=== PATIENT | female | born 1955 | race Caucasian/White ===

== ENCOUNTER 2018-03-08 16:36 | Inpatient (IN) ==
[2018-03-08] MEDS ORDERED: HEPARIN - PHARMACY CONSULT MC ONE (17:45)
[2018-03-08] MEDS ORDERED: HEPARIN 1,000unit/ml INJECTION 10ml IVP ONE (18:44)
[2018-03-08] MEDS: HEPARIN DRIP 20,000 UNIT/500 ML BAG IV SCH (19:22)
[2018-03-08] MEDS ORDERED: ACETAMINOPHEN 325 MG TABLET PO PRN (19:41)
[2018-03-08] MEDS: ALBUTEROL/IPRATROPIUM 2.5mg-0.5mg/3ml NEB AEROSOL PRN (20:36)
[2018-03-08] MEDS: FUROSEMIDE 40 MG/4 ML INJECTION IVP SCH (21:45)
[2018-03-08] MEDS: SALINE FLUSH 10ml SYRINGE IV PRN (21:48)
[2018-03-09] MEDS: FUROSEMIDE 40 MG/4 ML INJECTION IVP SCH ×4 (03:06→20:06)
[2018-03-09] MEDS ORDERED: HEPARIN 1,000unit/ml INJECTION 10ml IVP ONE ×3 (05:06→23:15)
--- NOTE | 2018-03-09 08:39 | Cardiology History & Physical ---
History of Present Illness Chief complaint: dyspnea HPI: Terrie is a 63 year old female who is known to Dr. Ochoa with a history of CO, CAD with PTCA of 1st diagonal and RCA, HTN, HLD and nicotine dependence who presented to the [facility] ED due to severe dyspnea yesterday. She reports her breathing has been labored with NGO since she had pneumonia at the beginning of January but became markedly worse yesterday. She reports increased abdominal girth and firmness, as well as LE edema over the past week. She was seen in the ED here at [facility] on 01/29/18 and prescribed Levaquin and Duoneb treatments for pneumonia, she finished the course and continues Duoneb treatments. She did follow up with Dr. Edwards 3 weeks after her diagnosis and he started her on Zantac for her stomach which she was unable to tolerate. She reports that she has not felt well since that illness but was unable to lay flat in her bed for a couple of months prior. She is examined in CCU. She is sitting up in bed in no distress on 3L/NC. She has a frequent moist cough and chest heaviness but denies dyspnea, fever, chills , sore throat, chest pain, palpitations, N/V/D, dysuria. Review of Systems - Constitutional Constitutional: Present: as per HPI. Absent: chills, fever(s) - EENMT Eyes: Absent: change in vision Balance: Absent: vertigo Mouth/Throat: Present: as per HPI - Cardiovascular Cardiovascular: Present: dyspnea on exertion, orthopnea, edema. Absent: chest pain, palpitations, syncope Rhythm: Present: regular rhythm Vascular: Present: pedal edema - Respiratory Respiratory: Present: cough, dyspnea, chest congestion - Gastrointestinal Gastrointestinal: Present: as per HPI. Absent: abdominal pain, constipation, diarrhea, nausea, vomiting - Genitourinary Genitourinary: Present: as per HPI - Integumentary/Breasts Integumentary: Absent: rash - Neurological Neurological: Absent: dizziness - Endocrine Endocrine: Absent: palpitations PFSH Patient Stated Medical History Other HEENT Yes: Reading GLASSES Hypertension Yes Myocardial Infarction Yes Bronchitis Yes Pneumonia Yes Surgical History: Family History: Father - CO in 40s, of CO at age 59 Grandfather - CO, at 63 Brother - DM HTN, HLD Daughter - HTN, HLD - Social History Smoking status: Current every day smoker Substance use type: does not use Alcohol intake: current Alcohol intake frequency: 0-2 drinks per day Last drink: unknown Housing: apartment Household members: none Current residence: Apartment/Private Home Medications Home Medications Medication Instructions Recorded Confirmed Type Nitroglycerin 0.4 mg SL PRN #0 07/01/12 03/08/18 History Acetaminophen [Acetaminophen Extra 500 mg PO BID 03/08/18 03/08/18 History Strength] Albuterol/Ipratropium [Duoneb] 1 unit AEROSOL Q4H PRN 03/08/18 03/08/18 History # Warfarin Protocol # [Coumadin 2 mg MC DAILY #30 misc 03/14/18 Rx Protocol] Aspirin *EC* [Ecotrin] 81 mg PO DAILY #30 tab 03/14/18 Rx Atorvastatin [Lipitor] 40 mg PO HS #30 tab 03/14/18 Rx Carvedilol [Coreg] 3.125 mg PO BIDWM #60 tab 03/14/18 Rx Clopidogrel [Plavix] 75 mg PO DAILY #30 tab 03/14/18 Rx Furosemide [Lasix 40 mg Tab] 40 mg PO 0900,1700 #60 tab 03/14/18 Rx Lisinopril [Prinivil] 2.5 mg PO DAILY #30 tab 03/14/18 Rx Nitroglycerin [Nitrostat] 0.4 mg SL Q5MIN3 PRN #25 tab 03/14/18 Rx Potassium Chloride [K-DUR 20 mEq 20 meq PO DAILY #30 tab 03/14/18 Rx Tablet] Allergies Allergy/AdvReac Type Severity Reaction Status Date / Time No Known Allergies Allergy Unverified 01/29/18 01:03 Exam Vital signs: Temperature 97.7 F 03/08/18 20:28 Pulse Rate 101 H 03/09/18 06:00 Respiratory Rate 29 H 03/09/18 06:00 Blood Pressure 110/82 03/09/18 06:00 Pulse Oximetry 97 03/09/18 06:00 - Constitutional no acute distress, cooperative - Routine HEENT Exam Head: Present: normocephalic ENT: Present: mucous membranes moist - Routine Neck Exam Absent: JVD, carotid bruit - Routine Chest/Breast/Axilla Exam Chest wall: Absent: tenderness - Routine Respiratory Exam Present: rales (LLL), diminished air movement (RLL). Absent: accessory muscle use, dyspnea, CTA bilaterally - Routine Cardiovascular Exam Present: RRR, no murmur, tachycardia - Routine Abdominal Exam Present: non distended, non tender, firm. Absent: soft - Routine Extremities Exam Present: edema - Routine Skin Exam Present: intact, dry, warm - Routine Neurological Exam Present: alert, oriented X3 - Routine Psychiatric Exam Present: normal affect, normal thought process Results 03/14/18 06:31 03/14/18 06:31 Cardiac Enzymes 03/08/18 03/09/18 03/09/18 Range/Units 18:29 00:02 05:39 Troponin I 0.204 H 0.199 H 0.212 H (0-0.12) ng/ml Coagulation 03/08/18 03/09/18 Range/Units 18:29 03:14 APTT 53.1 H 27.8 (24-36) SEC CBC 03/08/18 03/09/18 Range/Units 18:29 05:39 WBC 9.2 (4.5-11.0) T/MM3 RBC 4.19 (4.00-5.20) M/MM3 Hgb 12.4 (12-16) GM/DL Hct 39.9 (36-46) % Plt Count 273 244 (130-400) T/MM3 Comprehensive Metabolic Panel 03/09/18 Range/Units 05:39 Sodium 141 (134-144) MEQ/L Potassium 3.5 L (3.6-5) MEQ/L Chloride 98 (98-107) MEQ/L Carbon Dioxide 31 H (22-30) MEQ/L BUN 16.0 (7-17) MG/DL Creatinine 1.0 (0.7-1.2) mg/dL Glucose 103 (65-110) MG/DL Calcium 9.0 (8.4-10.2) MG/DL Intake and Output 03/08/18 03/09/18 03/09/18 22:59 06:59 14:59 Intake Total 236.308 / 236.308 113.48 / 113.48 Output Total 950 / 950 2375 / 2375 Balance -713.692 / -713.692 -2261.52 / -2261.52 Intake: IV 36.308 / 36.308 113.48 / 113.48 Heparin Drip 20,000 unit In 500 36.308 / 36.308 113.48 / 113.48 ml @ 550 UNIT/HR 13.75 mls/hr IV .Q24H COUNT INCLUDES THE [facility] Rx#:[id number] Oral 200 / 200 Output: Urine 400 / 400 Urine Amount (Catheter) 550 / 550 2375 / 2375 Other: Urine Appearance Clear Clear Urine Color Pale Pale Yellow Yellow # Voids 1 Weight 121 lb 7.595 oz - Imaging and Cardiology Imaging & Cardiology Narrative: Date of Exam: 03/09/18 Ordering Provider: Sindhu Black APRN Type of Exam(s): XR chest 1V Reason for Exam(s): dyspnea EXAM: XR chest 1V HISTORY: dyspnea COMPARISON: Prior examination dated 01/29/2018 FINDINGS: The heart is enlarged. The trachea is midline is no evidence mediastinal widening. There is mild pulmonary vascular congestion and hazy opacities at the lung bases right greater than left. There is blunting of the right costophrenic angle. The left costophrenic angle is clear. The bony thorax appears stable. There is artifact from cardiac monitoring lead wires over the chest. IMPRESSION: 1. Cardiomegaly with early congestive changes. 2. Hazy opacities at the lung bases, right greater than left that may represent superimposed atelectasis or early infiltrate. 3. Small right pleural effusion. 03/09/18 09:58 03/10/18 10:37 Date of Exam: 03/08/18 Type of Exam(s): US echo doppler complete DATE OF PROCEDURE March 08, 2018 This is a two-dimensional echo with spectral Doppler, color-flow and M-mode. It was obtained in a patient with congestive heart failure and chest pain. Left atrium is dilated. Left ventricle end-diastolic dimension is normal. Left ventricle wall thickness is normal. Severe global hypokinesia is present with ejection fraction no more than 20%. Right atrium is dilated. Right ventricle is normal. Aortic root dimension is normal. Mitral valve is morphologically normal with moderate mitral regurgitation. Aortic valve is a trileaflet structure with no stenosis. Mild aortic insufficiency is present. Tricuspid valve shows moderate tricuspid regurgitation with severe pulmonary hypertension with estimated pulmonary artery systolic pressure of 75. Pulmonary valve shows moderate pulmonary insufficiency. There is no pericardial effusion. Left ventricular cavity shows apical thrombus. IMPRESSION 1. Severe global hypokinesia with ejection fraction no more than 20%. 2. Left ventricular apical thrombus. 3. Biatrial dilation. 4. Moderate mitral regurgitation. 5. Mild aortic insufficiency. 6. Moderate tricuspid regurgitation with severe pulmonary hypertension with estimated pulmonary artery systolic pressure of 75. 7. Moderate pulmonary insufficiency. 03/10/18 10:39 Date of Exam: 03/09/18 Ordering Provider: Sindhu Black APRN Type of Exam(s): US venous doppler LE BI Reason for Exam(s): cardiac thrombus EXAM: US venous doppler LE BI HISTORY: cardiac thrombus COMPARISON: No prior studies available for comparison. Using duplex and color flow technology the deep venous system of the legs were evaluated throughout their length. No abnormal findings were demonstrated, specifically no intraluminal thrombus is seen. The deep venous system appears completely compressible throughout its length bilaterally. At the same time it shows the normal properties of spontaneous flow as well as augmentation. IMPRESSION: Negative venous ultrasound of both lower extremities. EKG interpretations - EKG EKG results cardiology: sinus rhythm - Dysrhythmias Sinus rhythms and dysrhythmias: sinus tachycardia Ventricular dysrhythmias: supraventricular captures during ventricular rhythm or tachycardia Hospital Course This is a general summary of the patient's hospital course. For more details refer to the complete medical record. Time spent with patient: 25 - 35 minutes Resuscitation Status: Full Code Assessment and Plan - Attestation Attestation Narrative: 03/15/18 07:53 Recommendation After examining the patient I agree with the above assessment. I am involved in the formulation of the patient's plan of care. - Assessment and Plan (1) Acute systolic heart failure Status: Acute Has JVD, Dyspnea, hypoxia, ascites, pedal edema - 2D echo: EF 20-25% - BNP 24202 - Diuresis with Lasix 40mg IV Q6H - Replace potassium - Check Mag - CXR this am (2) NSTEMI (non-ST elevated myocardial infarction) Status: Acute Trend serial troponins. 1) 0.204, 2) 0.199, 3) 0.212 - EKG ST, NSSTT changes - Heparin drip - 2D echo pending - Will need LHC when able to tolerate laying flat (3) Cardiomyopathy Status: Acute EF 20-25% - Coreg 3.125mg BID, Lisinopril 5mg daily - Life Vest - LHC to determine if ischemic or nonischemic (4) Left ventricular thrombus Status: Acute Heparin drip per pharmacy consult - LE venous doppler for DVT (5) Hypokalemia Status: Resolved Give additional 40meq KCl no - Continue KCl 20meq TID (6) Pulmonary hypertension Status: Chronic - Assessment and Plan Acute systolic HF: Has JVD, Dyspnea, hypoxia, ascites, pedal edema - 2D echo: EF 20-25% - BNP 74009 - Diuresis with Lasix 40mg IV Q6H - Replace potassium - Check Mag - CXR this am NSTEMI: Trend serial troponins. 1) 0.204, 2) 0.199, 3) 0.212 - EKG ST, NSSTT changes - Heparin drip per pharmacy consult - 2D echo pending - Will need LHC when able to tolerate laying flat CM: EF 20-25% - Coreg 3.125mg BID, Lisinopril 5mg daily - Life Vest - LHC to determine if ischemic or nonischemic LV thrombus: Heparin drip per pharmacy consult - LE venous doppler for DVT Hypokalemia:Give additional 40meq KCl no - Continue KCl 20meq TID
--- NOTE | 2018-03-09 08:45 | XRay Report ---
EXAM: XR chest 1V HISTORY: dyspnea COMPARISON: Prior examination dated 01/29/2018 FINDINGS: The heart is enlarged. The trachea is midline is no evidence mediastinal widening. There is mild pulmonary vascular congestion and hazy opacities at the lung bases right greater than left. There is blunting of the right costophrenic angle. The left costophrenic angle is clear. The bony thorax appears stable. There is artifact from cardiac monitoring lead wires over the chest. IMPRESSION: 1. Cardiomegaly with early congestive changes. 2. Hazy opacities at the lung bases, right greater than left that may represent superimposed atelectasis or early infiltrate. 3. Small right pleural effusion. .
--- NOTE | 2018-03-09 10:04 | Ultrasound Report ---
EXAM: US venous doppler LE BI HISTORY: cardiac thrombus COMPARISON: No prior studies available for comparison. Using duplex and color flow technology the deep venous system of the legs were evaluated throughout their length. No abnormal findings were demonstrated, specifically no intraluminal thrombus is seen. The deep venous system appears completely compressible throughout its length bilaterally. At the same time it shows the normal properties of spontaneous flow as well as augmentation. IMPRESSION: Negative venous ultrasound of both lower extremities. .
[2018-03-09] MEDS ORDERED: ALBUTEROL/IPRATROPIUM 2.5mg-0.5mg/3ml NEB AEROSOL PRN (13:49)
[2018-03-09] MEDS: CARVEDILOL 3.125 MG TABLET PO SCH ×2 (14:18→20:06)
[2018-03-09] MEDS: LISINOPRIL 2.5 MG TABLET PO SCH (14:18)
--- NOTE | 2018-03-09 14:25 | Echocardiogram ---
DATE OF PROCEDURE March 08, 2018 This is a two-dimensional echo with spectral Doppler, color-flow and M-mode. It was obtained in a patient with congestive heart failure and chest pain. Left atrium is dilated. Left ventricle end-diastolic dimension is normal. Left ventricle wall thickness is normal. Severe global hypokinesia is present with ejection fraction no more than 20%. Right atrium is dilated. Right ventricle is normal. Aortic root dimension is normal. Mitral valve is morphologically normal with moderate mitral regurgitation. Aortic valve is a trileaflet structure with no stenosis. Mild aortic insufficiency is present. Tricuspid valve shows moderate tricuspid regurgitation with severe pulmonary hypertension with estimated pulmonary artery systolic pressure of 75. Pulmonary valve shows moderate pulmonary insufficiency. There is no pericardial effusion. Left ventricular cavity shows apical thrombus. IMPRESSION 1. Severe global hypokinesia with ejection fraction no more than 20%. 2. Left ventricular apical thrombus. 3. Biatrial dilation. 4. Moderate mitral regurgitation. 5. Mild aortic insufficiency. 6. Moderate tricuspid regurgitation with severe pulmonary hypertension with estimated pulmonary artery systolic pressure of 75. 7. Moderate pulmonary insufficiency. MTDD
--- NOTE | 2018-03-09 14:28 | Pharmacy Consult ---
Pharmacy Consult-Heparin - Laboratory Information Heparin Plt Count 244 T/MM3 (130-400) 03/09/18 05:39 APTT 36.1 SEC (24-36) H 03/09/18 12:42 - Consult Information HEPARIN CONSULT: Day 2 of Heparin Therapy Dx: Left ventricular thrombus KARLA is a 63 yo female who is known to Dr. Ochoa with a history of NC, CAD with PTCA. She reported on admission her breathing has been labored with NGO since she had pneumonia at the beginning of January but became markedly worse yesterday. She reported increased abdominal girth and firmness, as well as LE edema over the past week. A Heparin Dosing Protocol was ordered. Baseline PTT = 53 Sec. *Have questioned this aPTT since. Baseline platelet count = 273 T/mm3. PTT Target Range (Cardiac Patient) = 50-75 Seconds Today's aPTT @ 1330 = 36.1 seconds Current PLT count = 244 T/mm3 I will give Heparin Bolus of 3,000 units, and increase the Heparin Drip at 20 units/hr (23 ml/hr). I also ordered an aPTT fir 2330 this evening. and the pharmacy will continue to monitor and make adjustments accordingly. Thank you for the Heparin dosing Protocol, Tyron Lion [facility].
[2018-03-09] MEDS: ALBUTEROL/IPRATROPIUM 2.5mg-0.5mg/3ml NEB AEROSOL PRN (16:04)
[2018-03-09] MEDS: BUDESONIDE INH.SOLN 0.5mg/2ml NEB AEROSOL SCH (19:15)
[2018-03-09] MEDS: ALBUTEROL/IPRATROPIUM 2.5mg-0.5mg/3ml NEB AEROSOL SCH (19:15)
[2018-03-09] MEDS: HEPARIN DRIP 20,000 UNIT/500 ML BAG IV SCH ×3 (20:07→23:23)
[2018-03-09] MEDS ORDERED: HEPARIN 5,000unit/ml 1ml INJECTION IV ONE (23:10)
[2018-03-10] MEDS: NITROGLYCERIN 2% OINTMENT 1gm PACKET TP SCH ×4 (02:56→21:44)
[2018-03-10] MEDS: FUROSEMIDE 40 MG/4 ML INJECTION IVP SCH ×4 (02:56→21:44)
[2018-03-10] MEDS: ALBUTEROL/IPRATROPIUM 2.5mg-0.5mg/3ml NEB AEROSOL SCH ×2 (06:36→19:57)
[2018-03-10] MEDS: BUDESONIDE INH.SOLN 0.5mg/2ml NEB AEROSOL SCH ×2 (06:36→19:58)
--- NOTE | 2018-03-10 07:47 | Pharmacy Consult ---
Pharmacy Consult-Heparin - Laboratory Information Heparin - Consult Information HEPARIN CONSULT: Day 2 of Heparin Therapy @2230 Dx: Left ventricular thrombus KARLA is a 63 yo female who is known to Dr. Ochoa with a history of OR, CAD with PTCA. She reported on admission her breathing has been labored with NGO since she had pneumonia at the beginning of January but became markedly worse yesterday. She reported increased abdominal girth and firmness, as well as LE edema over the past week. A Heparin Dosing Protocol was ordered. Baseline PTT = 53 Sec. *Have questioned this aPTT since. Baseline platelet count = 273 T/mm3. PTT Target Range (Cardiac Patient) = 50-75 Seconds Today's aPTT @ 2219 = 40.2 seconds Current PLT count = 244 T/mm3 I will give Heparin Bolus of 3,000 units, and increase the Heparin Drip at 1040 units/hr (26 ml/hr). I also ordered an aPTT fir 0630 tomorrow morning and the pharmacy will continue to monitor and make adjustments accordingly. Thank you for the Heparin dosing Protocol, Tyron Lion RPh.
--- NOTE | 2018-03-10 07:59 | Pharmacy Consult ---
Pharmacy Consult-Heparin - Laboratory Information Heparin Plt Count 249 T/MM3 (130-400) 03/10/18 06:34 APTT 64.9 SEC (24-36) H 03/10/18 06:34 - Consult Information HEPARIN CONSULT: Day 3 of Heparin Therapy @ 0800 Dx: Left ventricular thrombus KARLA is a 63 yo female who is known to Dr. Ochoa with a history of [place], CAD with PTCA. She reported on admission her breathing has been labored with NGO since she had pneumonia at the beginning of January but became markedly worse yesterday. She reported increased abdominal girth and firmness, as well as LE edema over the past week. A Heparin Dosing Protocol was ordered. Baseline PTT = 53 Sec. *Have questioned this aPTT since. Baseline platelet count = 273 T/mm3. PTT Target Range (Cardiac Patient) = 50-75 Seconds Today's aPTT @ 0624 = 64 seconds Current PLT count = 249 T/mm3 I will continue the Heparin Drip at 1040 units/hr (26 ml/hr). [place] [address] tomorrow morning and the pharmacy will continue to monitor and make adjustments accordingly. Thank you for the Heparin dosing Protocol, Tyron Lion [facility].
[2018-03-10] MEDS: LISINOPRIL 2.5 MG TABLET PO SCH (08:22)
[2018-03-10] MEDS: CARVEDILOL 3.125 MG TABLET PO SCH (08:22)
[2018-03-10] MEDS ORDERED: NS 1,000 ML IV SCH (10:00)
[2018-03-10] MEDS ORDERED: NITROGLYCERIN 50MG INJECTION IV ONE (13:22)
[2018-03-10] MEDS ORDERED: MIDAZOLAM 2mg/2ml INJECTION ONE (13:22)
[2018-03-10] MEDS ORDERED: Verapamil 5 MG/2 ML VIAL ONE (13:22)
[2018-03-10] MEDS ORDERED: HEPARIN 1,000 UNITS/500 ML PREMIX (*CVL ONLY*) IV ONE (13:23)
[2018-03-10] MEDS ORDERED: HEPARIN 1,000unit/ml INJECTION 10ml ONE (13:23)
[2018-03-10] MEDS ORDERED: FentaNYL 250 MCG/5 ML INJECTION ONE (13:23)
[2018-03-10] MEDS ORDERED: IOHEXOL 350mg/ml 200ml BOTTLE ONE (13:24)
[2018-03-10] MEDS ORDERED: LIDOCAINE 1% (10mg/ml) 30ml SDV INJ ONE (13:24)
[2018-03-10] MEDS ORDERED: ASPIRIN 325 MG TABLET ONE (14:13)
[2018-03-10] MEDS ORDERED: CLOPIDOGREL 75 MG TABLET ONE (14:14)
[2018-03-10] MEDS ORDERED: PROMETHAZINE 25 MG INJECTION IVP PRN (14:31)
[2018-03-10] MEDS ORDERED: ONDANSETRON 4 MG/2 ML INJECTION IVP PRN (14:31)
[2018-03-10] MEDS ORDERED: ATROPINE 1 MG/ML INJECTION IVP PRN (14:31)
[2018-03-10] MEDS ORDERED: METOCLOPRAMIDE 10mg/2ml INJECTION IVP PRN (14:31)
[2018-03-10] MEDS ORDERED: MORPHINE SULFATE 4mg INJECTION IVP PRN ×2 (14:31)
[2018-03-10] MEDS ORDERED: NITROGLYCERIN 0.4 MG SUBLINGUAL TABLET SL PRN (14:31)
[2018-03-10] MEDS ORDERED: BISACODYL 10 MG SUPPOSITORY RECTALLY PRN (14:31)
[2018-03-10] MEDS ORDERED: Bisacodyl EC TAB 5 MG TABLET PO PRN (14:31)
[2018-03-10] MEDS ORDERED: HYDROCODONE/APAP 7.5 MG/325 MG TABLET PO PRN (14:31)
[2018-03-10] MEDS ORDERED: LORazepam 0.5 MG TABLET PO PRN (14:31)
[2018-03-10] MEDS ORDERED: MAG-AL + SIM ORAL LIQUID 30ml PO PRN (14:31)
[2018-03-10] MEDS: HEPARIN DRIP 20,000 UNIT/500 ML BAG IV SCH (17:18)
--- NOTE | 2018-03-10 21:05 | Cardiac Catheterization Report ---
DATE OF PROCEDURE March 10, 2018 The patient is a 63-year-old lady who presented with severe congestive heart failure, LV dysfunction and elevated troponin. She was referred for further evaluation by cardiac catheterization and possible intervention. Informed consent was obtained after explaining the procedure and the potential risks to the patient who agreed to proceed with the procedure. PROCEDURE 1. Left heart catheterization. 2. Coronary angiography. 3. Primary stent of mid RCA using a 2.75 x 15 drug-eluting EluNIR drug-eluting stent. 4. Right femoral angiography to visualize the vessel for closure device. 5. Successful Mynx deployment for hemostasis. TECHNIQUE She was prepped and draped in the usual sterile techniques. Conscious sedation was performed using Versed. 1% lidocaine was used for local anesthesia. Using modified Seldinger technique, arterial access was obtained into the right femoral artery with placement of a 6-Thai arterial sheath. CORONARY ANGIOGRAPHY Left main was free of significant lesions. Left anterior descending artery was a ucfsc-qv-ofvmsx-caliber vessel with about 40% mid stenosis. Diagonals were free of significant lesions. Left circumflex artery was a iqqpi-gz-pizefa- caliber vessel and nondominant with no significant lesions. Right coronary artery was dominant with 90% eccentric mid stenosis. After reviewing the images we decided to proceed with intervention on RCA. Additional 1500 units of heparin were administered. The patient was on heparin drip. A 6-Thai JR-4 guide with side holes was advanced to the ostium of the right coronary artery. The lesion was crossed using a Runthrough wire. A 2.75 x 15 drug-eluting EluNIR stent was delivered to the lesion site where it was deployed by inflating the balloon to 18 atmospheres. The next angiogram showed excellent results with no residual stenosis. Right femoral angiography showed patent common femoral, proximal SFA and profunda and therefore Mynx was used for hemostasis. IMPRESSION 1. Coronary artery disease as described above. 2. Successful primary stent of mid RCA using a 2.75 x 15 drug-eluting EluNIR stent. 3. Successful Mynx deployment for hemostasis. PLAN Will keep her on dual antiplatelet therapy at least for year and continue risk modification. [facility]
[2018-03-10] MEDS: ACETAMINOPHEN 325 MG TABLET PO PRN (21:44)
[2018-03-10] MEDS: ATORVASTATIN 40 MG TABLET PO SCH (21:44)
[2018-03-11] MEDS: FUROSEMIDE 40 MG/4 ML INJECTION IVP SCH ×2 (03:10→08:24)
[2018-03-11] MEDS: SALINE FLUSH 10ml SYRINGE IV PRN (03:11)
[2018-03-11] MEDS: NITROGLYCERIN 2% OINTMENT 1gm PACKET TP SCH ×4 (03:11→20:36)
--- NOTE | 2018-03-11 07:40 | Pharmacy Consult ---
Pharmacy Consult-Heparin - Laboratory Information Heparin Plt Count 278 T/MM3 (130-400) 03/11/18 06:51 APTT 59.8 SEC (24-36) H 03/11/18 06:51 - Consult Information PTT is in target range. Will continue heparin drip at 26 mls/hr (1040 units/hr) . Will continue to monitor. Thank you.
[2018-03-11] MEDS: ALBUTEROL/IPRATROPIUM 2.5mg-0.5mg/3ml NEB AEROSOL SCH ×2 (08:07→19:15)
[2018-03-11] MEDS: BUDESONIDE INH.SOLN 0.5mg/2ml NEB AEROSOL SCH ×2 (08:07→19:15)
[2018-03-11] MEDS: ASPIRIN *EC* 81 MG TABLET PO SCH (08:25)
[2018-03-11] MEDS: CLOPIDOGREL 75 MG TABLET PO SCH (08:25)
[2018-03-11] MEDS: LISINOPRIL 2.5 MG TABLET PO SCH (08:25)
[2018-03-11] MEDS ORDERED: ASPIRIN *EC* 81 MG TABLET PO SCH (09:00)
[2018-03-11] MEDS ORDERED: WARFARIN 6 MG TABLET PO ONE (12:39)
[2018-03-11] MEDS: WARFARIN - PHARMACY CONSULT MC ONE ×2 (12:45→13:35)
--- NOTE | 2018-03-11 13:21 | Cardiology Progress Note ---
<Sindhu Black - Last Filed: 03/11/18 20:52> Subjective Principal diagnosis: NSTEMI, CM Interval history: Terrie is seen in follow up for NSTEMI, CM and SCHF. Explained expected plan of care for rest of hospitalization, states understanding. She denies chest pain or pressure, has dyspnea at times but is in no distress on room air. She denies palpitations, dizziness or lightheadedness. Exam Vital signs: Temperature 98.1 F 03/11/18 12:00 Pulse Rate 82 03/11/18 12:00 Respiratory Rate 18 03/11/18 12:00 Blood Pressure 124/90 H 03/11/18 12:00 Pulse Oximetry 96 03/11/18 08:45 Inpatient Medications: Generic Name Dose Route Start Last Admin Trade Name Freq PRN Reason Stop Dose Admin Acetaminophen 325 - 650 mg 03/10/18 14:31 03/10/18 21:44 Tylenol PO 650 mg Q5H PRN Administration Pain Hydrocodone Bitart/Acetaminophen 1 - 2 tab 03/10/18 14:31 03/10/18 23:12 [place] 7.5/325 PO 1 tab Q5H PRN Administration Pain Al Hydroxide/Mg Hydroxide 30 ml 03/10/18 14:31 Maalox Plus PO Q3H PRN Indigestion Albuterol/Ipratropium 3 ml 03/08/18 20:33 03/09/18 16:04 Duoneb AEROSOL 3 ml RTQID PRN Administration Albuterol/Ipratropium 3 ml 03/09/18 19:00 03/11/18 08:07 Duoneb AEROSOL 3 ml RTBID [facility] Administration Aspirin 81 mg 03/11/18 09:00 03/11/18 08:25 Ecotrin PO 81 mg DAILY [facility] Administration Atorvastatin Calcium 40 mg 03/10/18 21:00 03/10/18 21:44 Lipitor PO 40 mg HS [facility] Administration Atropine Sulfate 0.5 mg 03/10/18 14:31 Atropine IVP Q5M PRN Bradycardia Bisacodyl 5 - 10 mg 03/10/18 14:31 Dulcolax PO DAILY PRN Constipation Bisacodyl 10 mg 03/10/18 14:31 Dulcolax RECTALLY DAILY PRN Constipation Budesonide 0.5 mg 03/09/18 19:00 03/11/18 08:07 Pulmicort Inhalation AEROSOL 0.5 mg RTBID [facility] Administration Clopidogrel Bisulfate 75 mg 03/11/18 09:00 03/11/18 08:25 Plavix PO 75 mg DAILY [facility] Administration Furosemide 40 mg 03/11/18 17:00 Lasix 40 Mg Tab PO 0900,1700 [facility] Heparin Sodium (Porcine) 20,000 unit in 500 mls @ 26 mls/hr 03/09/18 23:11 10:00 Heparin Drip IV 1,040 unit/hr .[id number] [facility] 26 mls/hr Protocol Titration 1,040 UNIT/HR Lisinopril 2.5 mg 03/09/18 14:00 03/11/18 08:25 Prinivil PO 2.5 mg DAILY [facility] Administration Lorazepam 0.5 - 1 mg 03/10/18 14:31 Ativan Inj IVP Q4H PRN Anxiety Lorazepam 0.5 - 1 mg 03/10/18 14:31 Ativan PO Q4H PRN Anxiety Magnesium Hydroxide 30 ml 03/10/18 14:31 Mom PO DAILY PRN Constipation Metoclopramide HCl 5 - 10 mg 03/10/18 14:31 Reglan IVP Q6H PRN Nausea &/or vomiting Morphine Sulfate 2 - 4 mg 03/10/18 14:31 Morphine Sulfate Inj IVP Q5M PRN Angina Morphine Sulfate 2 - 4 mg 03/10/18 14:31 Morphine Sulfate Inj IVP 03/11/18 14:30 Q2H PRN Pain Nitroglycerin 0.5 inch 03/10/18 03:00 03/11/18 08:26 Nitro-Bid TP 0.5 inch Q6HR [facility] Administration Nitroglycerin 0.4 mg 03/10/18 14:31 Nitrostat SL Q5MIN3 PRN Angina Ondansetron HCl 4 mg 03/10/18 14:31 03/10/18 14:35 Zofran IVP 4 mg Q6H PRN Administration Nausea &/or vomiting Potassium Chloride 20 meq 03/09/18 08:00 03/11/18 12:07 K-Dur 20 Meq Tablet PO 20 meq TIDWM [facility] Administration Promethazine HCl 12.5 - 25 mg 03/10/18 14:31 Phenergan Inj IVP Q6H PRN Nausea &/or vomiting Sodium Chloride 10 - 80 ml 03/08/18 17:23 03/11/18 03:11 Iv Flush IV 10 ml PRN PRN Administration Flushing Warfarin Sodium 0 03/11/18 12:45 Coumadin Protocol NOTE [facility] Discontinued Medications Generic Name Dose Route Start Last Admin Trade Name Freq PRN Reason Stop Dose Admin Acetaminophen 325 - 650 mg 03/08/18 19:41 03/09/18 20:11 Tylenol PO 650 mg Q5H PRN Administration Discomfort Albuterol/Ipratropium 3 ml 03/09/18 13:49 Duoneb AEROSOL Q4H PRN diff breathing/wheezing Aspirin 81 mg 03/11/18 09:00 Ecotrin PO DAILY [facility] Carvedilol 3.125 mg 03/09/18 17:30 03/10/18 08:22 Coreg PO 3.125 mg BIDWM [facility] Administration Furosemide 40 mg 03/08/18 21:00 03/11/18 08:24 Lasix 40 Mg/4 Ml IVP 40 mg Q6HR [facility] Administration Heparin Sodium (Beef Lung) 3,000 unit 03/09/18 05:06 03/09/18 05:14 Heparin Bolus IVP 03/09/18 05:07 3,000 unit O ONE Administration Heparin Sodium (Beef Lung) 3,000 unit 03/09/18 13:54 03/09/18 14:16 Heparin Bolus IVP 03/09/18 13:55 3,000 unit O ONE Administration Heparin Sodium (Beef Lung) 3,000 unit 03/09/18 23:15 03/09/18 23:17 Heparin Bolus IVP 03/09/18 23:16 3,000 unit O ONE Administration Heparin Sodium (Porcine) 1 each 03/08/18 17:45 Pharmacy Consult - Heparin 03/08/18 17:46 ONE TIME ONE Heparin Sodium (Porcine) 20,000 unit in 500 mls @ 23 mls/hr 03/08/18 19:00 23:18 Heparin Drip IV Infused .[id number] [facility] Titration Protocol 920 UNIT/HR Sodium Chloride 1,000 mls @ 75 mls/hr 03/10/18 10:00 03/10/18 20:00 Normal Saline IV Infused .[id number] [facility] Infusion Warfarin Sodium 1 each 03/11/18 12:19 Pharmacy Consult - Warfarin 03/11/18 12:20 O ONE Warfarin Sodium 6 mg 03/11/18 12:39 03/11/18 13:00 Coumadin PO 03/11/18 12:40 6 mg O ONE Administration - Constitutional no acute distress, well nourished, cooperative - Routine HEENT Exam Head: Present: normocephalic ENT: Present: mucous membranes moist - Routine Neck Exam Present: JVD. Absent: carotid bruit - Routine Chest/Breast/Axilla Exam Chest wall: Absent: tenderness - Routine Respiratory Exam Present: rales (bibasilar). Absent: accessory muscle use, dyspnea - Routine Cardiovascular Exam Present: RRR, no murmur, JVD - Routine Abdominal Exam Present: soft, non tender - Routine Extremities Exam Present: no edema - Routine Skin Exam Present: intact, dry, warm - Routine Neurological Exam Present: alert, oriented X3 - Routine Psychiatric Exam Present: normal affect, normal thought process - Urinary Catheter Management Urethral Cath placed during this visit: yes Insertion date: 03/08/18 Insertion time: 18:45 Results 03/11/18 06:51 03/11/18 06:51 Coagulation 03/11/18 Range/Units 06:51 APTT 59.8 H (24-36) SEC Lipids 03/10/18 Range/Units 06:33 Triglycerides 59 (35-135) mg/dL Cholesterol 127 L (132-199) mg/dL HDL Cholesterol 37 L (40-60) mg/dL Cholesterol/HDL Ratio 3.4 (0-4.0) RATIO CBC 03/11/18 Range/Units 06:51 WBC 7.7 (4.5-11.0) T/MM3 RBC 4.20 (4.00-5.20) M/MM3 Hgb 12.2 (12-16) GM/DL Hct 39.8 (36-46) % Plt Count 278 (130-400) T/MM3 Neut # (Auto) 4.9 (1.8-7.7) T/MM3 Lymph # (Auto) 1.9 (1-4.8) T/MM3 [place] # (Auto) 0.7 (0-0.8) T/MM3 Eos # (Auto) 0.3 (0-0.5) T/MM3 Baso # (Auto) 0.0 (0-0.2) T/MM3 Comprehensive Metabolic Panel 03/11/18 Range/Units 06:51 Sodium 137 (134-144) MEQ/L Potassium 4.1 (3.6-5) MEQ/L Chloride 96 L (98-107) MEQ/L Carbon Dioxide 29 (22-30) MEQ/L BUN 18.0 H (7-17) MG/DL Creatinine 1.0 (0.7-1.2) mg/dL Glucose 117 H (65-110) MG/DL Calcium 8.5 (8.4-10.2) MG/DL Intake and Output 03/10/18 03/11/18 03/11/18 22:59 06:59 14:59 Intake Total 954.75 / 954.75 208 / 208 604 / 604 Output Total 518 / 518 666 / 666 1155 / 1155 Balance 436.75 / 436.75 -458 / -458 -551 / -551 Intake: IV 834.75 / 834.75 208 / 208 104 / 104 Heparin Drip 20,000 unit In 500 416.0 / 416.0 208 / 208 104 / 104 ml @ 1,040 UNIT/HR 26 mls/hr IV .[id number] [facility] Rx#:[id number] Ns 1,000 ml @ 75 mls/hr IV . 418.75 / 418.75 [id number] [facility] Rx#:[id number] Oral 120 / 120 500 / 500 Output: Urine Amount (Catheter) 518 / 518 666 / 666 1155 / 1155 Other: Urine Appearance Clear Clear Clear Urine Color Yellow Yellow Pale Yellow Urine Odor Normal Stool Characteristics Normal for Patient Stool Color Brown Brown Stool Consistency Formed Formed Size of Bowel Movement Moderate Moderate Weight 123 lb 10.869 oz Patient Weight 03/12/18 06:59 Weight 123 lb 10.869 oz - Imaging and Cardiology Imaging & Cardiology Narrative: Date of Exam: 03/10/18 Type of Exam(s): CA heart cath LT DATE OF PROCEDURE March 10, 2018 The patient is a 63-year-old lady who presented with severe congestive heart failure, LV dysfunction and elevated troponin. She was referred for further evaluation by cardiac catheterization and possible intervention. Informed consent was obtained after explaining the procedure and the potential risks to the patient who agreed to proceed with the procedure. PROCEDURE 1. Left heart catheterization. 2. Coronary angiography. 3. Primary stent of mid RCA using a 2.75 x 15 drug-eluting EluNIR drug-eluting stent. 4. Right femoral angiography to visualize the vessel for closure device. 5. Successful Mynx deployment for hemostasis. TECHNIQUE She was prepped and draped in the usual sterile techniques. Conscious sedation was performed using Versed. 1% lidocaine was used for local anesthesia. Using modified Seldinger technique, arterial access was obtained into the right femoral artery with placement of a 6-[place] arterial sheath. CORONARY ANGIOGRAPHY Left main was free of significant lesions. Left anterior descending artery was a vcefj-sy-ptulcc-caliber vessel with about 40% mid stenosis. Diagonals were free of significant lesions. Left circumflex artery was a xhtrd-cn-oernap- caliber vessel and nondominant with no significant lesions. Right coronary artery was dominant with 90% eccentric mid stenosis. After reviewing the images we decided to proceed with intervention on RCA. Additional 1500 units of heparin were administered. The patient was on heparin drip. A 6-[place] JR-4 guide with side holes was advanced to the ostium of the right coronary artery. The lesion was crossed using a Run[place] wire. A 2.75 x 15 drug-eluting EluNIR stent was delivered to the lesion site where it was deployed by inflating the balloon to 18 atmospheres. The next angiogram showed excellent results with no residual stenosis. Right femoral angiography showed patent common femoral, proximal SFA and profunda and therefore Mynx was used for hemostasis. IMPRESSION 1. Coronary artery disease as described above. 2. Successful primary stent of mid RCA using a 2.75 x 15 drug-eluting EluNIR stent. 3. Successful Mynx deployment for hemostasis. PLAN Will keep her on dual antiplatelet therapy at least for year and continue risk modification. 03/11/18 13:21 Assessment and Plan - Assessment and Plan (1) Acute systolic heart failure Status: Acute (2) NSTEMI (non-ST elevated myocardial infarction) Status: Acute (3) Cardiomyopathy Status: Acute (4) Left ventricular thrombus Status: Acute (5) Hypokalemia Status: Resolved (6) Pulmonary hypertension Status: Chronic - Assessment and Plan 03/09/18 Acute systolic HF: Has JVD, Dyspnea, hypoxia, ascites, pedal edema - 2D echo: EF 20-25% - BNP 97985 - Diuresis with Lasix 40mg IV Q6H - Replace potassium - Check Mag - CXR this am NSTEMI: Trend serial troponins. 1) 0.204, 2) 0.199, 3) 0.212 - EKG ST, NSSTT changes - Heparin drip per pharmacy consult - 2D echo pending - Will need LHC when able to tolerate laying flat CM: EF 20-25% - Coreg 3.125mg BID, Lisinopril 5mg daily - Life Vest - LHC to determine if ischemic or nonischemic LV thrombus: Heparin drip per pharmacy consult - LE venous doppler for DVT Hypokalemia:Give additional 40meq KCl no - Continue KCl 20meq TID 03/10/18 [facility] with intervention, see report above - Continue OWEN with Plavix and Aspirin 03/11/[address] Restrict fluids to 2L/day - Strict I&O - Remove Hernández please - Okay to transfer to Surgical - Dietary consult for CHF, Fluid. Na restrictions. - Change IV Lasix to PO 40mg BID - Continue to monitor renal & electrolytes - Monitor cardiac telemetry - EKG in am Hospital Course Summary Disclaimer: The visit summary below is not to be considered part of the above Progress Note. <Jonah Ochoa - Last Filed: 03/15/18 07:58> Exam Vital signs: Temperature 97.4 F 03/14/18 11:50 Pulse Rate 80 03/14/18 11:50 Respiratory Rate 20 03/14/18 11:50 Blood Pressure 115/58 03/14/18 11:50 Pulse Oximetry 96 03/14/18 11:50 Inpatient Medications: Discontinued Medications Generic Name Dose Route Start Last Admin Trade Name Freq PRN Reason Stop Dose Admin Acetaminophen 325 - 650 mg 03/08/18 19:41 03/09/18 20:11 Tylenol PO 650 mg Q5H PRN Administration Discomfort Acetaminophen 325 - 650 mg 03/10/18 14:31 03/12/18 18:17 Tylenol PO 650 mg Q5H PRN Administration Pain Hydrocodone Bitart/Acetaminophen 1 - 2 tab 03/10/18 14:31 03/10/18 23:12 [place] 7.5/325 PO 1 tab Q5H PRN Administration Pain Al Hydroxide/Mg Hydroxide 30 ml 03/10/18 14:31 Maalox Plus PO Q3H PRN Indigestion Albuterol/Ipratropium 3 ml 03/08/18 20:33 03/09/18 16:04 Duoneb AEROSOL 3 ml RTQID PRN Administration Albuterol/Ipratropium 3 ml 03/09/18 13:49 Duoneb AEROSOL Q4H PRN diff breathing/wheezing Albuterol/Ipratropium 3 ml 03/09/18 19:00 03/14/18 07:11 Duoneb AEROSOL 3 ml RTBID [facility] Administration Aspirin 81 mg 03/11/18 09:00 Ecotrin PO DAILY [facility] Aspirin 81 mg 03/11/18 09:00 03/14/18 08:52 Ecotrin PO 81 mg DAILY [facility] Administration Atorvastatin Calcium 40 mg 03/10/18 21:00 03/13/18 20:12 Lipitor PO 40 mg HS [facility] Administration Atropine Sulfate 0.5 mg 03/10/18 14:31 Atropine IVP Q5M PRN Bradycardia Benzonatate 100 mg 03/11/18 16:01 03/11/18 18:52 Tessalon Perles PO 100 mg TID PRN Administration Cough Bisacodyl 5 - 10 mg 03/10/18 14:31 Dulcolax PO DAILY PRN Constipation Bisacodyl 10 mg 03/10/18 14:31 Dulcolax RECTALLY DAILY PRN Constipation Budesonide 0.5 mg 03/09/18 19:00 03/14/18 07:11 Pulmicort Inhalation AEROSOL 0.5 mg RTBID [facility] Administration Carvedilol 3.125 mg 03/09/18 17:30 03/10/18 08:22 Coreg PO 3.125 mg BIDWM [facility] Administration Carvedilol 3.125 mg 03/11/18 17:30 03/14/18 08:51 Coreg PO 3.125 mg BIDWM [facility] Administration Clopidogrel Bisulfate 75 mg 03/11/18 09:00 03/14/18 08:51 Plavix PO 75 mg DAILY [facility] Administration Furosemide 40 mg 03/08/18 21:00 03/11/18 08:24 Lasix 40 Mg/4 Ml IVP 40 mg Q6HR [facility] Administration Furosemide 40 mg 03/11/18 17:00 03/14/18 08:53 Lasix 40 Mg Tab PO 40 mg 0900,1700 [facility] Administration Heparin Sodium (Beef Lung) 3,000 unit 03/09/18 05:06 04/11/18 05:14 Heparin Bolus IVP 03/09/18 05:07 3,000 unit O ONE Administration Heparin Sodium (Beef Lung) 3,000 unit 03/09/18 13:54 03/09/18 14:16 Heparin Bolus IVP 03/09/18 13:55 3,000 unit O ONE Administration Heparin Sodium (Beef Lung) 3,000 unit 03/09/18 23:15 03/09/18 23:17 Heparin Bolus IVP 03/09/18 23:16 3,000 unit O ONE Administration Heparin Sodium (Porcine) 1 each 03/08/18 17:45 Pharmacy Consult - Heparin MC 03/08/18 17:46 ONE TIME ONE Heparin Sodium (Porcine) 20,000 unit in 500 mls @ 23 mls/hr 03/08/18 19:00 23:18 Heparin Drip IV Infused .[id number] [facility] Titration Protocol 920 UNIT/HR Sodium Chloride 1,000 mls @ 75 mls/hr 03/10/18 10:00 03/10/18 20:00 Normal Saline IV Infused .[id number] [facility] Infusion Heparin Sodium (Porcine) 20,000 unit in 500 mls @ 29 mls/hr 03/09/18 23:11 13:44 Heparin Drip IV Infused .[id number] [facility] Titration Protocol 1,160 UNIT/HR Lisinopril 2.5 mg 03/09/18 14:00 03/14/18 08:50 Prinivil PO 2.5 mg DAILY [facility] Administration Lorazepam 0.5 - 1 mg 03/10/18 14:31 Ativan Inj IVP Q4H PRN Anxiety Lorazepam 0.5 - 1 mg 03/10/18 14:31 Ativan PO Q4H PRN Anxiety Magnesium Hydroxide 30 ml 03/10/18 14:31 Mom PO DAILY PRN Constipation Metoclopramide HCl 5 - 10 mg 03/10/18 14:31 Reglan IVP Q6H PRN Nausea &/or vomiting Morphine Sulfate 2 - 4 mg 03/10/18 14:31 Morphine Sulfate Inj IVP Q5M PRN Angina Morphine Sulfate 2 - 4 mg 03/10/18 14:31 Morphine Sulfate Inj IVP 03/11/18 14:30 Q2H PRN Pain Multi-Ingredient Ointment 1 applic 03/12/18 20:14 Analgesic [place] TP QID PRN Nitroglycerin 0.5 inch 03/10/18 03:00 03/14/18 14:32 Nitro-Bid TP Not Given Q6HR [facility] Nitroglycerin 0.4 mg 03/10/18 14:31 Nitrostat SL Q5MIN3 PRN Angina Ondansetron HCl 4 mg 03/10/18 14:31 03/10/18 14:35 Zofran IVP 4 mg Q6H PRN Administration Nausea &/or vomiting Potassium Chloride 20 meq 03/09/18 08:00 03/12/18 13:28 K-Dur 20 Meq Tablet PO 20 meq TIDWM [facility] Administration Potassium Chloride 20 meq 03/13/18 08:00 03/13/18 08:23 K-Dur 20 Meq Tablet PO 20 meq BIDWM [facility] Administration Promethazine HCl 12.5 - 25 mg 03/10/18 14:31 Phenergan Inj IVP Q6H PRN Nausea &/or vomiting Sodium Chloride 10 - 80 ml 03/08/18 17:23 03/14/18 11:50 Iv Flush IV 10 ml PRN PRN Administration Flushing Warfarin Sodium 1 each 03/11/18 12:19 03/11/18 13:35 Pharmacy Consult - Warfarin 03/11/18 12:20 Not Given O ONE Warfarin Sodium 6 mg 03/11/18 12:39 03/11/18 13:00 Coumadin PO 03/11/18 12:40 6 mg O ONE Administration Warfarin Sodium 0 03/11/18 12:45 Coumadin Protocol NOTE [facility] Warfarin Sodium 2 mg 03/12/18 12:00 03/12/18 13:27 Coumadin PO 03/12/18 12:30 2 mg NOON [facility] Administration Warfarin Sodium 1 mg 03/13/18 12:00 03/13/18 11:35 Coumadin PO 03/13/18 12:30 1 mg NOON [facility] Administration Warfarin Sodium 2 mg 03/14/18 12:00 03/14/18 11:50 Coumadin PO 03/14/18 14:00 2 mg NOON [facility] Administration - Urinary Catheter Management Urethral Cath placed during this visit: no Results 03/14/18 06:31 03/14/18 06:31 Assessment and Plan - Assessment and Plan (1) Acute systolic heart failure Status: Acute (2) NSTEMI (non-ST elevated myocardial infarction) Status: Acute (3) Cardiomyopathy Status: Acute (4) Left ventricular thrombus Status: Acute (5) Hypokalemia Status: Resolved (6) Pulmonary hypertension Status: Chronic - Attestation Attestation Narrative: 03/15/18 07:58 Recommendation After examining the patient I agree with the above assessment. I am involved in the formulation of the patient's plan of care. Hospital Course Summary Disclaimer: The visit summary below is not to be considered part of the above Progress Note.
--- NOTE | 2018-03-11 13:22 | Pharmacy Consult ---
Pharmacy Consult-Warfarin - Consult Information 63 y.o. Female with diagnosis of Left Ventricular Thrombus is currently on Heparin drip with therapeutic PTT this am at 59.8 seconds. Warfarin per pharmacy protocol ordered goal INR 2.0 to 3.0. Patient is Warfarin naive. Will give Warfarin 6 mg po today. Thank you, Brea Taveras [facility]
[2018-03-11] MEDS: HEPARIN DRIP 20,000 UNIT/500 ML BAG IV SCH ×2 (13:35→20:36)
[2018-03-11] MEDS ORDERED: BENZONATATE 100 MG CAPSULE PO PRN (16:01)
[2018-03-11] MEDS: CARVEDILOL 3.125 MG TABLET PO SCH (18:37)
[2018-03-11] MEDS: FUROSEMIDE 40 MG TABLET PO SCH (18:41)
[2018-03-11 19:21] VITALS: BMI 21.9
[2018-03-11] MEDS: ATORVASTATIN 40 MG TABLET PO SCH (20:36)
[2018-03-12] MEDS: NITROGLYCERIN 2% OINTMENT 1gm PACKET TP SCH ×4 (03:14→20:05)
--- NOTE | 2018-03-12 08:02 | Pharmacy Consult ---
Pharmacy Consult-Warfarin - Laboratory Information 03/12/18 06:44 INR 1.57 H - Consult Information We will give warfarin 2mg po today at noon. INR seems to be increasing nicely with a goal of 2 to 3. Heparin drip will continue until INR therapeutic. Thanks
--- NOTE | 2018-03-12 08:09 | Pharmacy Consult ---
Pharmacy Consult-Heparin - Laboratory Information Heparin Plt Count 293 T/MM3 (130-400) 03/12/18 06:44 APTT 53.0 SEC (24-36) H 03/12/18 06:44 - Consult Information HEPARIN CONSULT (Recurring): PTT = 53.0 Sec. Platelet count = 293 T/mm3. Will adjust Heparin Drip to 1,080 units/hr (27 ml/hr). Will recheck PTT and adjust regimen as needed. Thank you.
[2018-03-12] MEDS: CARVEDILOL 3.125 MG TABLET PO SCH ×2 (08:34→17:36)
[2018-03-12] MEDS: ASPIRIN *EC* 81 MG TABLET PO SCH (08:34)
[2018-03-12] MEDS: CLOPIDOGREL 75 MG TABLET PO SCH (08:35)
[2018-03-12] MEDS: LISINOPRIL 2.5 MG TABLET PO SCH (08:35)
[2018-03-12] MEDS: FUROSEMIDE 40 MG TABLET PO SCH ×2 (08:35→17:36)
[2018-03-12] MEDS: HEPARIN DRIP 20,000 UNIT/500 ML BAG IV SCH ×3 (09:49→18:02)
[2018-03-12] MEDS: BUDESONIDE INH.SOLN 0.5mg/2ml NEB AEROSOL SCH ×2 (10:16→19:42)
[2018-03-12] MEDS: ALBUTEROL/IPRATROPIUM 2.5mg-0.5mg/3ml NEB AEROSOL SCH ×2 (10:16→19:42)
[2018-03-12] MEDS ORDERED: WARFARIN 2 MG TABLET PO SCH (12:00)
--- NOTE | 2018-03-12 15:19 | Cardiology Progress Note ---
<Sindhu Black - Last Filed: 03/13/18 15:41> Subjective Principal diagnosis: NSTEMI, CM Interval history: Terrie is seen in follow up for NSTEMI, CM and SCHF. She is resting in her bed, LifeVest is on. She denies chest pain or pressure, has dyspnea at times but is in no distress on room air. She denies palpitations, dizziness or lightheadedness. Exam Vital signs: Temperature 98.5 F 03/12/18 11:17 Pulse Rate 85 03/12/18 12:13 Respiratory Rate 18 03/12/18 11:17 Blood Pressure 97/67 03/12/18 11:17 Pulse Oximetry 93 03/12/18 11:17 Inpatient Medications: Generic Name Dose Route Start Last Admin Trade Name Freq PRN Reason Stop Dose Admin Acetaminophen 325 - 650 mg 03/10/18 14:31 03/10/18 21:44 Tylenol PO 650 mg Q5H PRN Administration Pain Hydrocodone Bitart/Acetaminophen 1 - 2 tab 03/10/18 14:31 03/10/18 23:12 [place] 7.5/325 PO 1 tab Q5H PRN Administration Pain Al Hydroxide/Mg Hydroxide 30 ml 03/10/18 14:31 Maalox Plus PO Q3H PRN Indigestion Albuterol/Ipratropium 3 ml 03/08/18 20:33 03/09/18 16:04 Duoneb AEROSOL 3 ml RTQID PRN Administration Albuterol/Ipratropium 3 ml 03/09/18 19:00 03/12/18 10:16 Duoneb AEROSOL 3 ml RTBID [facility] Administration Aspirin 81 mg 03/11/18 09:00 03/12/18 08:34 Ecotrin PO 81 mg DAILY [facility] Administration Atorvastatin Calcium 40 mg 03/10/18 21:00 03/11/18 20:36 Lipitor PO 40 mg HS [facility] Administration Atropine Sulfate 0.5 mg 03/10/18 14:31 Atropine IVP Q5M PRN Bradycardia Benzonatate 100 mg 03/11/18 16:01 03/11/18 18:52 Tessalon Perles PO 100 mg TID PRN Administration Cough Bisacodyl 5 - 10 mg 03/10/18 14:31 Dulcolax PO DAILY PRN Constipation Bisacodyl 10 mg 03/10/18 14:31 Dulcolax RECTALLY DAILY PRN Constipation Budesonide 0.5 mg 03/09/18 19:00 03/12/18 10:16 Pulmicort Inhalation AEROSOL 0.5 mg RTBID [facility] Administration Carvedilol 3.125 mg 03/11/18 17:30 03/12/18 08:34 Coreg PO 3.125 mg BIDWM [facility] Administration Clopidogrel Bisulfate 75 mg 03/11/18 09:00 03/12/18 08:35 Plavix PO 75 mg DAILY [facility] Administration Furosemide 40 mg 03/11/18 17:00 03/12/18 08:35 Lasix 40 Mg Tab PO 40 mg 0900,1700 [facility] Administration Heparin Sodium (Porcine) 20,000 unit in 500 mls @ 27 mls/hr 03/09/18 23:11 09:49 Heparin Drip IV 1,080 unit/hr .[id number] [facility] 27 mls/hr Protocol Administration 1,080 UNIT/HR Lisinopril 2.5 mg 03/09/18 14:00 03/12/18 08:35 Prinivil PO 2.5 mg DAILY [facility] Administration Lorazepam 0.5 - 1 mg 03/10/18 14:31 Ativan Inj IVP Q4H PRN Anxiety Lorazepam 0.5 - 1 mg 03/10/18 14:31 Ativan PO Q4H PRN Anxiety Magnesium Hydroxide 30 ml 03/10/18 14:31 Mom PO DAILY PRN Constipation Metoclopramide HCl 5 - 10 mg 03/10/18 14:31 Reglan IVP Q6H PRN Nausea &/or vomiting Morphine Sulfate 2 - 4 mg 03/10/18 14:31 Morphine Sulfate Inj IVP Q5M PRN Angina Nitroglycerin 0.5 inch 03/10/18 03:00 03/12/18 08:35 Nitro-Bid TP 0.5 inch Q6HR [facility] Administration Nitroglycerin 0.4 mg 03/10/18 14:31 Nitrostat SL Q5MIN3 PRN Angina Ondansetron HCl 4 mg 03/10/18 14:31 03/10/18 14:35 Zofran IVP 4 mg Q6H PRN Administration Nausea &/or vomiting Potassium Chloride 20 meq 03/09/18 08:00 03/12/18 13:28 K-Dur 20 Meq Tablet PO 20 meq TIDWM [facility] Administration Promethazine HCl 12.5 - 25 mg 03/10/18 14:31 Phenergan Inj IVP Q6H PRN Nausea &/or vomiting Sodium Chloride 10 - 80 ml 03/08/18 17:23 03/11/18 03:11 Iv Flush IV 10 ml PRN PRN Administration Flushing Warfarin Sodium 0 03/11/18 12:45 Coumadin Protocol NOTE [facility] Discontinued Medications Generic Name Dose Route Start Last Admin Trade Name Freq PRN Reason Stop Dose Admin Acetaminophen 325 - 650 mg 03/08/18 19:41 03/09/18 20:11 Tylenol PO 650 mg Q5H PRN Administration Discomfort Albuterol/Ipratropium 3 ml 03/09/18 13:49 Duoneb AEROSOL Q4H PRN diff breathing/wheezing Aspirin 81 mg 03/11/18 09:00 Ecotrin PO DAILY [facility] Carvedilol 3.125 mg 03/09/18 17:30 03/10/18 08:22 Coreg PO 3.125 mg BIDWM [facility] Administration Furosemide 40 mg 03/08/18 21:00 03/11/18 08:24 Lasix 40 Mg/4 Ml IVP 40 mg Q6HR [facility] Administration Heparin Sodium (Beef Lung) 3,000 unit 03/09/18 05:06 03/09/18 05:14 Heparin Bolus IVP 03/09/18 05:07 3,000 unit O ONE Administration Heparin Sodium (Beef Lung) 3,000 unit 03/09/18 13:54 03/09/18 14:16 Heparin Bolus IVP 03/09/18 13:55 3,000 unit O ONE Administration Heparin Sodium (Beef Lung) 3,000 unit 03/09/18 23:15 03/09/18 23:17 Heparin Bolus IVP 03/09/18 23:16 3,000 unit O ONE Administration Heparin Sodium (Porcine) 1 each 03/08/18 17:45 Pharmacy Consult - Heparin 03/08/18 17:46 ONE TIME ONE Heparin Sodium (Porcine) 20,000 unit in 500 mls @ 23 mls/hr 03/08/18 19:00 23:18 Heparin Drip IV Infused .[id number] [facility] Titration Protocol 920 UNIT/HR Sodium Chloride 1,000 mls @ 75 mls/hr 03/10/18 10:00 03/10/18 20:00 Normal Saline IV Infused .[id number] [facility] Infusion Morphine Sulfate 2 - 4 mg 03/10/18 14:31 Morphine Sulfate Inj IVP 03/11/18 14:30 Q2H PRN Pain Warfarin Sodium 1 each 03/11/18 12:19 03/11/18 13:35 Pharmacy Consult - Warfarin MC 03/11/18 12:20 Not Given O ONE Warfarin Sodium 6 mg 03/11/18 12:39 03/11/18 13:00 Coumadin PO 03/11/18 12:40 6 mg O ONE Administration Warfarin Sodium 2 mg 03/12/18 12:00 03/12/18 13:27 Coumadin PO 03/12/18 12:30 2 mg NOON [facility] Administration - Constitutional no acute distress, well nourished, cooperative - Routine HEENT Exam Head: Present: normocephalic ENT: Present: mucous membranes moist - Routine Neck Exam Present: JVD. Absent: carotid bruit - Routine Chest/Breast/Axilla Exam Chest wall: Absent: tenderness - Routine Respiratory Exam Present: diminished air movement (bases). Absent: dyspnea - Routine Cardiovascular Exam Present: no murmur, irregularly irregular - Routine Abdominal Exam Present: soft, normoactive bowel sounds - Routine Extremities Exam Present: no edema - Routine Skin Exam Present: intact, dry, warm - Routine Neurological Exam Present: alert, oriented X3 - Routine Psychiatric Exam Present: normal affect, normal thought process - Urinary Catheter Management Urethral Cath placed during this visit: yes Insertion date: 03/08/18 Insertion time: 18:45 Results 03/12/18 06:44 03/12/18 06:44 Coagulation 03/12/18 Range/Units 06:44 APTT 53.0 H (24-36) SEC CBC 03/12/18 Range/Units 06:44 WBC 8.2 (4.5-11.0) T/MM3 RBC 4.20 (4.00-5.20) M/MM3 Hgb 12.2 (12-16) GM/DL Hct 39.5 (36-46) % Plt Count 293 (130-400) T/MM3 Comprehensive Metabolic Panel 03/12/18 Range/Units 06:44 Sodium 137 (134-144) MEQ/L Potassium 4.6 (3.6-5) MEQ/L Chloride 96 L (98-107) MEQ/L Carbon Dioxide 31 H (22-30) MEQ/L BUN 21.0 H (7-17) MG/DL Creatinine 1.1 (0.7-1.2) mg/dL Glucose 102 (65-110) MG/DL Calcium 9.4 D (8.4-10.2) MG/DL Intake and Output 03/12/18 03/12/18 03/12/18 06:59 14:59 22:59 Intake Total 100 / 100 863.167 / 863.167 Output Total 800 / 800 800 / 800 Balance -700 / -700 63.167 / 63.167 Intake: IV 463.167 / 463.167 Heparin Drip 20,000 unit In 500 463.167 / 463.167 ml @ 1,080 UNIT/HR 27 mls/hr IV .[id number] [facility] Rx#:[id number] Oral 100 / 100 400 / 400 Output: Urine 800 / 800 800 / 800 Other: Urine Appearance Clear Clear Urine Color Yellow Yellow Urine Odor Normal Stool Consistency Formed Size of Bowel Movement Small # Voids 1 # Bowel Movements 1 Weight 120 lb 2.431 oz Patient Weight 03/13/18 06:59 Weight 120 lb 2.431 oz Assessment and Plan - Assessment and Plan (1) Acute systolic heart failure Status: Acute (2) NSTEMI (non-ST elevated myocardial infarction) Status: Acute (3) Cardiomyopathy Status: Acute (4) Left ventricular thrombus Status: Acute (5) Hypokalemia Status: Resolved (6) Pulmonary hypertension Status: Chronic - Assessment and Plan 03/09/18 Acute systolic HF: Has JVD, Dyspnea, hypoxia, ascites, pedal edema - 2D echo: EF 20-25% - BNP [id number] - Diuresis with Lasix 40mg IV Q6H - Replace potassium - Check Mag - CXR this am NSTEMI: Trend serial troponins. 1) 0.204, 2) 0.199, 3) 0.212 - EKG ST, NSSTT changes - Heparin drip per pharmacy consult - 2D echo pending - Will need LHC when able to tolerate laying flat CM: EF 20-25% - Coreg 3.125mg BID, Lisinopril 5mg daily - Life Vest - LHC to determine if ischemic or nonischemic LV thrombus: Heparin drip per pharmacy consult - LE venous doppler for DVT Hypokalemia:Give additional 40meq KCl no - Continue KCl 20meq TID 03/10/18 [facility] with intervention, see report above - Continue OWEN with Plavix and Aspirin 03/11/[address] today Restrict fluids to 2L/day - Strict I&O - Remove Hernández please - Okay to transfer to Surgical - Dietary consult for CHF, Fluid. Na restrictions. - Change IV Lasix to PO 40mg BID - Continue to monitor renal & electrolytes - Monitor cardiac telemetry - EKG in am 03/12/18 INR 1.57 today, continue Heparin drip until therapeutic - HGB and platelets stable -Continue current Lasix, monitor renal & electrolytes - Decrease Potassium to BID Hospital Course Summary Disclaimer: The visit summary below is not to be considered part of the above Progress Note. <Jonah Ochoa - Last Filed: 03/16/18 13:18> Exam Vital signs: Temperature 97.4 F 03/14/18 11:50 Pulse Rate 80 03/14/18 11:50 Respiratory Rate 20 03/14/18 11:50 Blood Pressure 115/58 03/14/18 11:50 Pulse Oximetry 96 03/14/18 11:50 Inpatient Medications: Discontinued Medications Generic Name Dose Route Start Last Admin Trade Name Freq PRN Reason Stop Dose Admin Acetaminophen 325 - 650 mg 03/08/18 19:41 03/09/18 20:11 Tylenol PO 650 mg Q5H PRN Administration Discomfort Acetaminophen 325 - 650 mg 03/10/18 14:31 03/12/18 18:17 Tylenol PO 650 mg Q5H PRN Administration Pain Hydrocodone Bitart/Acetaminophen 1 - 2 tab 03/10/18 14:31 03/10/18 23:12 [place] 7.5/325 PO 1 tab Q5H PRN Administration Pain Al Hydroxide/Mg Hydroxide 30 ml 03/10/18 14:31 Maalox Plus PO Q3H PRN Indigestion Albuterol/Ipratropium 3 ml 03/08/18 20:33 03/09/18 16:04 Duoneb AEROSOL 3 ml RTQID PRN Administration Albuterol/Ipratropium 3 ml 03/09/18 13:49 Duoneb AEROSOL Q4H PRN diff breathing/wheezing Albuterol/Ipratropium 3 ml 03/09/18 19:00 03/14/18 07:11 Duoneb AEROSOL 3 ml RTBID [facility] Administration Aspirin 81 mg 03/11/18 09:00 Ecotrin PO DAILY [facility] Aspirin 81 mg 03/11/18 09:00 03/14/18 08:52 Ecotrin PO 81 mg DAILY [facility] Administration Atorvastatin Calcium 40 mg 03/10/18 21:00 03/13/18 20:12 Lipitor PO 40 mg HS [facility] Administration Atropine Sulfate 0.5 mg 03/10/18 14:31 Atropine IVP Q5M PRN Bradycardia Benzonatate 100 mg 03/11/18 16:01 03/11/18 18:52 Tessalon Perles PO 100 mg TID PRN Administration Cough Bisacodyl 5 - 10 mg 03/10/18 14:31 Dulcolax PO DAILY PRN Constipation Bisacodyl 10 mg 03/10/18 14:31 Dulcolax RECTALLY DAILY PRN Constipation Budesonide 0.5 mg 03/09/18 19:00 03/14/18 07:11 Pulmicort Inhalation AEROSOL 0.5 mg RTBID [facility] Administration Carvedilol 3.125 mg 03/09/18 17:30 03/10/18 08:22 Coreg PO 3.125 mg BIDWM [facility] Administration Carvedilol 3.125 mg 03/11/18 17:30 03/14/18 08:51 Coreg PO 3.125 mg BIDWM [facility] Administration Clopidogrel Bisulfate 75 mg 03/11/18 09:00 03/14/18 08:51 Plavix PO 75 mg DAILY [facility] Administration Furosemide 40 mg 03/08/18 21:00 03/11/18 08:24 Lasix 40 Mg/4 Ml IVP 40 mg Q6HR [facility] Administration Furosemide 40 mg 03/11/18 17:00 03/14/18 08:53 Lasix 40 Mg Tab PO 40 mg 0900,1700 [facility] Administration Heparin Sodium (Beef Lung) 3,000 unit 03/09/18 05:06 03/09/18 05:14 Heparin Bolus IVP 03/09/18 05:07 3,000 unit O ONE Administration Heparin Sodium (Beef Lung) 3,000 unit 03/09/18 13:54 03/09/18 14:16 Heparin Bolus IVP 03/09/18 13:55 3,000 unit O ONE Administration Heparin Sodium (Beef Lung) 3,000 unit 03/09/18 23:15 03/09/18 23:17 Heparin Bolus IVP 03/09/18 23:16 3,000 unit O ONE Administration Heparin Sodium (Porcine) 1 each 03/08/18 17:45 Pharmacy Consult - Heparin MC 03/08/18 17:46 ONE TIME ONE Heparin Sodium (Porcine) 20,000 unit in 500 mls @ 23 mls/hr 03/08/18 19:00 23:18 Heparin Drip IV Infused .[id number] [facility] Titration Protocol 920 UNIT/HR Sodium Chloride 1,000 mls @ 75 mls/hr 03/10/18 10:00 03/10/18 20:00 Normal Saline IV Infused .[id number] [facility] Infusion Heparin Sodium (Porcine) 20,000 unit in 500 mls @ 29 mls/hr 03/09/18 23:11 13:44 Heparin Drip IV Infused .[id number] [facility] Titration Protocol 1,160 UNIT/HR Lisinopril 2.5 mg 03/09/18 14:00 03/14/18 08:50 Prinivil PO 2.5 mg DAILY [facility] Administration Lorazepam 0.5 - 1 mg 03/10/18 14:31 Ativan Inj IVP Q4H PRN Anxiety Lorazepam 0.5 - 1 mg 03/10/18 14:31 Ativan PO Q4H PRN Anxiety Magnesium Hydroxide 30 ml 03/10/18 14:31 Mom PO DAILY PRN Constipation Metoclopramide HCl 5 - 10 mg 03/10/18 14:31 Reglan IVP Q6H PRN Nausea &/or vomiting Morphine Sulfate 2 - 4 mg 03/10/18 14:31 Morphine Sulfate Inj IVP Q5M PRN Angina Morphine Sulfate 2 - 4 mg 03/10/18 14:31 Morphine Sulfate Inj IVP 03/11/18 14:30 Q2H PRN Pain Multi-Ingredient Ointment 1 applic 03/12/18 20:14 Analgesic [place] TP QID PRN Nitroglycerin 0.5 inch 03/10/18 03:00 03/14/18 14:32 Nitro-Bid TP Not Given Q6HR [facility] Nitroglycerin 0.4 mg 03/10/18 14:31 Nitrostat SL Q5MIN3 PRN Angina Ondansetron HCl 4 mg 03/10/18 14:31 03/10/18 14:35 Zofran IVP 4 mg Q6H PRN Administration Nausea &/or vomiting Potassium Chloride 20 meq 03/09/18 08:00 03/12/18 13:28 K-Dur 20 Meq Tablet PO 20 meq TIDWM [facility] Administration Potassium Chloride 20 meq 03/13/18 08:00 03/13/18 08:23 K-Dur 20 Meq Tablet PO 20 meq BIDWM [facility] Administration Promethazine HCl 12.5 - 25 mg 03/10/18 14:31 Phenergan Inj IVP Q6H PRN Nausea &/or vomiting Sodium Chloride 10 - 80 ml 03/08/18 17:23 03/14/18 11:50 Iv Flush IV 10 ml PRN PRN Administration Flushing Warfarin Sodium 1 each 03/11/18 12:19 03/11/18 13:35 Pharmacy Consult - Warfarin 03/11/18 12:20 Not Given O ONE Warfarin Sodium 6 mg 03/11/18 12:39 03/11/18 13:00 Coumadin PO 03/11/18 12:40 6 mg O ONE Administration Warfarin Sodium 0 03/11/18 12:45 Coumadin Protocol NOTE [facility] Warfarin Sodium 2 mg 03/12/18 12:00 03/12/18 13:27 Coumadin PO 03/12/18 12:30 2 mg NOON [facility] Administration Warfarin Sodium 1 mg 03/13/18 12:00 03/13/18 11:35 Coumadin PO 03/13/18 12:30 1 mg NOON [facility] Administration Warfarin Sodium 2 mg 03/14/18 12:00 03/14/18 11:50 Coumadin PO 03/14/18 14:00 2 mg NOON [facility] Administration - Urinary Catheter Management Urethral Cath placed during this visit: no Results 03/14/18 06:31 03/14/18 06:31 Assessment and Plan - Assessment and Plan (1) Acute systolic heart failure Status: Acute (2) NSTEMI (non-ST elevated myocardial infarction) Status: Acute (3) Cardiomyopathy Status: Acute (4) Left ventricular thrombus Status: Acute (5) Hypokalemia Status: Resolved (6) Pulmonary hypertension Status: Chronic - Attestation Attestation Narrative: 03/16/18 13:16 Recommendation Patient was examined by my KENNEL KEEPER, Sindhu Black and discussed finding with me. Clinical record reviewed remotely and together we decided on the patient's plan of care. Hospital Course Summary Disclaimer: The visit summary below is not to be considered part of the above Progress Note. Addendum entered and electronically signed by Sindhu Black APRN 03/13/18 18: 49: Pateint was examined by me, Sindhu Black APRN, and finding were discussed with Dr. Ochoa. Clinical record was reviewed remotely by Dr. Ochoa and together we agree on the plan of care.
[2018-03-12] MEDS: ACETAMINOPHEN 325 MG TABLET PO PRN (18:17)
[2018-03-12] MEDS: SALINE FLUSH 10ml SYRINGE IV PRN (20:04)
[2018-03-12] MEDS: ATORVASTATIN 40 MG TABLET PO SCH (20:04)
[2018-03-12] MEDS ORDERED: METHYL SALICYLATE/MENTHOL OINT 28gm TP PRN (20:14)
[2018-03-13] MEDS: NITROGLYCERIN 2% OINTMENT 1gm PACKET TP SCH ×4 (05:55→20:12)
[2018-03-13] MEDS: HEPARIN DRIP 20,000 UNIT/500 ML BAG IV SCH (05:55)
[2018-03-13] MEDS: SALINE FLUSH 10ml SYRINGE IV PRN (05:59)
--- NOTE | 2018-03-13 08:02 | Pharmacy Consult ---
Pharmacy Consult-Heparin - Laboratory Information Heparin Plt Count 293 T/MM3 (130-400) 03/12/18 06:44 APTT 50.4 SEC (24-36) H 03/13/18 06:06 - Consult Information HEPARIN CONSULT (Recurring): PTT = 50.4 Platelet count = Not ordered. Will adjust Heparin Drip to 1160 units/hr (29 ml/hr). Will recheck PTT and adjust regimen as needed. Thank you.
--- NOTE | 2018-03-13 08:07 | Pharmacy Consult ---
Pharmacy Consult-Warfarin - Laboratory Information 03/12/18 03/13/18 06:44 06:06 INR 1.57 H 2.23 H - Consult Information INR increased substantially into therapeutic range (consider dc'ing heparin) so we will give 1mg of warfarin today. Anticipating INR to increase even more for tomorrow. Thanks
[2018-03-13] MEDS: CLOPIDOGREL 75 MG TABLET PO SCH (08:23)
[2018-03-13] MEDS: LISINOPRIL 2.5 MG TABLET PO SCH (08:23)
[2018-03-13] MEDS: FUROSEMIDE 40 MG TABLET PO SCH ×2 (08:23→16:57)
[2018-03-13] MEDS: ASPIRIN *EC* 81 MG TABLET PO SCH (08:24)
[2018-03-13] MEDS: CARVEDILOL 3.125 MG TABLET PO SCH ×2 (08:24→16:57)
[2018-03-13] MEDS: ALBUTEROL/IPRATROPIUM 2.5mg-0.5mg/3ml NEB AEROSOL SCH ×2 (11:47→20:38)
[2018-03-13] MEDS: BUDESONIDE INH.SOLN 0.5mg/2ml NEB AEROSOL SCH ×2 (11:47→20:38)
[2018-03-13] MEDS ORDERED: WARFARIN 1 MG TABLET PO SCH (12:00)
--- NOTE | 2018-03-13 15:45 | Cardiology Progress Note ---
<Sindhu Black - Last Filed: 03/14/18 14:00> Subjective Principal diagnosis: NSTEMI, CM Interval history: Terrie is seen in follow up for NSTEMI, CM and SCHF. She is sitting up in her bed , her brother is at the bedside. She states her cough has improved and denies chest pain or pressure, dyspnea, palpitations, dizziness or lightheadedness. Exam Vital signs: Temperature 97.7 F 03/13/18 15:09 Pulse Rate 88 03/13/18 15:09 Respiratory Rate 18 03/13/18 15:09 Blood Pressure 105/70 03/13/18 15:09 Pulse Oximetry 94 03/13/18 15:09 Inpatient Medications: Generic Name Dose Route Start Last Admin Trade Name Freq PRN Reason Stop Dose Admin Acetaminophen 325 - 650 mg 03/10/18 14:31 03/12/18 18:17 Tylenol PO 650 mg Q5H PRN Administration Pain Hydrocodone Bitart/Acetaminophen 1 - 2 tab 03/10/18 14:31 03/10/18 23:12 Axtell 7.5/325 PO 1 tab Q5H PRN Administration Pain Al Hydroxide/Mg Hydroxide 30 ml 03/10/18 14:31 Maalox Plus PO Q3H PRN Indigestion Albuterol/Ipratropium 3 ml 03/08/18 20:33 03/09/18 16:04 Duoneb AEROSOL 3 ml RTQID PRN Administration Albuterol/Ipratropium 3 ml 03/09/18 19:00 03/13/18 11:47 Duoneb AEROSOL 3 ml RTBID [facility] Administration Aspirin 81 mg 03/11/18 09:00 03/13/18 08:24 Ecotrin PO 81 mg DAILY [facility] Administration Atorvastatin Calcium 40 mg 03/10/18 21:00 03/12/18 20:04 Lipitor PO 40 mg HS [facility] Administration Atropine Sulfate 0.5 mg 03/10/18 14:31 Atropine IVP Q5M PRN Bradycardia Benzonatate 100 mg 03/11/18 16:01 03/11/18 18:52 Tessalon Perles PO 100 mg TID PRN Administration Cough Bisacodyl 5 - 10 mg 03/10/18 14:31 Dulcolax PO DAILY PRN Constipation Bisacodyl 10 mg 03/10/18 14:31 Dulcolax RECTALLY DAILY PRN Constipation Budesonide 0.5 mg 03/09/18 19:00 03/13/18 11:47 Pulmicort Inhalation AEROSOL 0.5 mg RTBID [facility] Administration Carvedilol 3.125 mg 03/11/18 17:30 03/13/18 08:24 Coreg PO 3.125 mg BIDWM [facility] Administration Clopidogrel Bisulfate 75 mg 03/11/18 09:00 03/13/18 08:23 Plavix PO 75 mg DAILY [facility] Administration Furosemide 40 mg 03/11/18 17:00 03/13/18 08:23 Lasix 40 Mg Tab PO 40 mg 0900,1700 [facility] Administration Heparin Sodium (Porcine) 20,000 unit in 500 mls @ 29 mls/hr 03/09/18 23:11 08:21 Heparin Drip IV 1,160 unit/hr .[id number] [facility] 29 mls/hr Protocol Titration 1,160 UNIT/HR Lisinopril 2.5 mg 03/09/18 14:00 03/13/18 08:23 Prinivil PO 2.5 mg DAILY [facility] Administration Lorazepam 0.5 - 1 mg 03/10/18 14:31 Ativan Inj IVP Q4H PRN Anxiety Lorazepam 0.5 - 1 mg 03/10/18 14:31 Ativan PO Q4H PRN Anxiety Magnesium Hydroxide 30 ml 03/10/18 14:31 Mom PO DAILY PRN Constipation Metoclopramide HCl 5 - 10 mg 03/10/18 14:31 Reglan IVP Q6H PRN Nausea &/or vomiting Morphine Sulfate 2 - 4 mg 03/10/18 14:31 Morphine Sulfate Inj IVP Q5M PRN Angina Multi-Ingredient Ointment 1 applic 03/12/18 20:14 Analgesic Halfway TP QID PRN Nitroglycerin 0.5 inch 03/10/18 03:00 03/13/18 15:02 Nitro-Bid TP 0.5 inch Q6HR [facility] Administration Nitroglycerin 0.4 mg 03/10/18 14:31 Nitrostat SL Q5MIN3 PRN Angina Ondansetron HCl 4 mg 03/10/18 14:31 03/10/18 14:35 Zofran IVP 4 mg Q6H PRN Administration Nausea &/or vomiting Potassium Chloride 20 meq 03/13/18 08:00 03/13/18 08:23 K-Dur 20 Meq Tablet PO 20 meq BIDWM [facility] Administration Promethazine HCl 12.5 - 25 mg 03/10/18 14:31 Phenergan Inj IVP Q6H PRN Nausea &/or vomiting Sodium Chloride 10 - 80 ml 03/08/18 17:23 03/13/18 05:59 Iv Flush IV 10 ml PRN PRN Administration Flushing Warfarin Sodium 0 03/11/18 12:45 Coumadin Protocol NOTE [facility] Discontinued Medications Generic Name Dose Route Start Last Admin Trade Name Freq PRN Reason Stop Dose Admin Acetaminophen 325 - 650 mg 03/08/18 19:41 03/09/18 20:11 Tylenol PO 650 mg Q5H PRN Administration Discomfort Albuterol/Ipratropium 3 ml 03/09/18 13:49 Duoneb AEROSOL Q4H PRN diff breathing/wheezing Aspirin 81 mg 03/11/18 09:00 Ecotrin PO DAILY [facility] Carvedilol 3.125 mg 03/09/18 17:30 03/10/18 08:22 Coreg PO 3.125 mg BIDWM [facility] Administration Furosemide 40 mg 03/08/18 21:00 03/11/18 08:24 Lasix 40 Mg/4 Ml IVP 40 mg Q6HR [facility] Administration Heparin Sodium (Beef Lung) 3,000 unit 03/09/18 05:06 03/09/18 05:14 Heparin Bolus IVP 03/09/18 05:07 3,000 unit O ONE Administration Heparin Sodium (Beef Lung) 3,000 unit 03/09/18 13:54 03/09/18 14:16 Heparin Bolus IVP 03/09/18 13:55 3,000 unit O ONE Administration Heparin Sodium (Beef Lung) 3,000 unit 03/09/18 23:15 03/09/18 23:17 Heparin Bolus IVP 03/09/18 23:16 3,000 unit O ONE Administration Heparin Sodium (Porcine) 1 each 03/08/18 17:45 Pharmacy Consult - Heparin 03/08/18 17:46 ONE TIME ONE Heparin Sodium (Porcine) 20,000 unit in 500 mls @ 23 mls/hr 03/08/18 19:00 23:18 Heparin Drip IV Infused .[id number] [facility] Titration Protocol 920 UNIT/HR Sodium Chloride 1,000 mls @ 75 mls/hr 03/10/18 10:00 03/10/18 20:00 Normal Saline IV Infused .[id number] [facility] Infusion Morphine Sulfate 2 - 4 mg 03/10/18 14:31 Morphine Sulfate Inj IVP 03/11/18 14:30 Q2H PRN Pain Potassium Chloride 20 meq 03/09/18 08:00 03/12/18 13:28 K-Dur 20 Meq Tablet PO 20 meq TIDWM [facility] Administration Warfarin Sodium 1 each 03/11/18 12:19 03/11/18 13:35 Pharmacy Consult - Warfarin MC 03/11/18 12:20 Not Given O ONE Warfarin Sodium 6 mg 03/11/18 12:39 03/11/18 13:00 Coumadin PO 03/11/18 12:40 6 mg O ONE Administration Warfarin Sodium 2 mg 03/12/18 12:00 03/12/18 13:27 Coumadin PO 03/12/18 12:30 2 mg NOON [facility] Administration Warfarin Sodium 1 mg 03/13/18 12:00 03/13/18 11:35 Coumadin PO 03/13/18 12:30 1 mg NOON [facility] Administration - Constitutional no acute distress, well nourished, cooperative - Routine HEENT Exam Head: Present: normocephalic ENT: Present: mucous membranes moist - Routine Neck Exam Absent: JVD, carotid bruit - Routine Chest/Breast/Axilla Exam Chest wall: Absent: tenderness - Routine Respiratory Exam Present: diminished air movement. Absent: crackles - Routine Cardiovascular Exam Present: no murmur, irregular rhythm - Routine Abdominal Exam Present: soft, non tender - Routine Extremities Exam Present: no edema - Routine Skin Exam Present: intact, dry, warm - Routine Neurological Exam Present: alert, oriented X3 - Routine Psychiatric Exam Present: normal affect, normal thought process - Urinary Catheter Management Urethral Cath placed during this visit: yes Insertion date: 03/08/18 Insertion time: 18:45 Results 03/13/18 14:00 03/13/18 14:00 Coagulation 03/13/18 Range/Units 06:06 APTT 50.4 H (24-36) SEC CBC 03/13/18 Range/Units 14:00 WBC 7.9 (4.5-11.0) T/MM3 RBC 4.15 (4.00-5.20) M/MM3 Hgb 12.1 (12-16) GM/DL Hct 38.8 (36-46) % Plt Count 346 (130-400) T/MM3 Comprehensive Metabolic Panel 03/13/18 Range/Units 14:00 Sodium 139 (134-144) MEQ/L Potassium 5.1 H (3.6-5) MEQ/L Chloride 96 L (98-107) MEQ/L Carbon Dioxide 32 H (22-30) MEQ/L BUN 21.0 H (7-17) MG/DL Creatinine 1.1 (0.7-1.2) mg/dL Glucose 96 (65-110) MG/DL Calcium 9.8 (8.4-10.2) MG/DL Intake and Output 03/13/18 03/13/18 03/13/18 06:59 14:59 22:59 Intake Total 500 / 500 665.7 / 665.7 Output Total 550 / 550 2049 Balance -50 / -50 -1384.3 / -1384.3 Intake: IV 500 / 500 65.7 / 65.7 Heparin Drip 20,000 unit In 500 500 / 500 65.7 / 65.7 ml @ 1,160 UNIT/HR 29 mls/hr IV .[id number] [facility] Rx#:[id number] Oral 600 / 600 Output: Urine 550 / 550 2049 Other: Urine Appearance Clear Clear Urine Color Yellow Pale Yellow Urine Odor Normal Normal Stool Characteristics Normal for Patient Stool Color Brown Brown Blood Tinged Stool Consistency Soft Leena Size of Bowel Movement Moderate Small # Voids 1 2 # Bowel Movements 1 1 Weight 119 lb 7.849 oz Patient Weight 03/14/18 06:59 Weight 119 lb 7.849 oz Assessment and Plan - Assessment and Plan (1) Acute systolic heart failure Status: Acute (2) NSTEMI (non-ST elevated myocardial infarction) Status: Acute (3) Cardiomyopathy Status: Acute (4) Left ventricular thrombus Status: Acute (5) Hypokalemia Status: Resolved (6) Pulmonary hypertension Status: Chronic - Assessment and Plan 03/09/18 Acute systolic HF: Has JVD, Dyspnea, hypoxia, ascites, pedal edema - 2D echo: EF 20-25% - BNP 57318 - Diuresis with Lasix 40mg IV Q6H - Replace potassium - Check Mag - CXR this am NSTEMI: Trend serial troponins. 1) 0.204, 2) 0.199, 3) 0.212 - EKG ST, NSSTT changes - Heparin drip per pharmacy consult - 2D echo pending - Will need LHC when able to tolerate laying flat CM: EF 20-25% - Coreg 3.125mg BID, Lisinopril 5mg daily - Life Vest - LHC to determine if ischemic or nonischemic LV thrombus: Heparin drip per pharmacy consult - LE venous doppler for DVT Hypokalemia:Give additional 40meq KCl no - Continue KCl 20meq TID 03/10/18 [facility] with intervention, see report above - Continue OWEN with Plavix and Aspirin 03/11/[address] today Restrict fluids to 2L/day - Strict I&O - Remove Hernández please - Okay to transfer to Surgical - Dietary consult for CHF, Fluid. Na restrictions. - Change IV Lasix to PO 40mg BID - Continue to monitor renal & electrolytes - Monitor cardiac telemetry - EKG in am 03/12/18 INR 1.57 today, continue Heparin drip until therapeutic - HGB and platelets stable -Continue current Lasix, monitor renal & electrolytes - Decrease Potassium to BID Pateint was examined by Sindhu denise APRN, and finding were discussed with Dr. Ochoa. Clinical record was reviewed remotely by Dr. Ochoa and together we agree on the plan of care. 03/13/18 INR 2.2 today, continue Heparin. Hgb and platelets stable K+ 5.1, hold K+ replacement Pateint was examined by Sindhu denise APRN, and finding were discussed with Dr. Ochoa. Clinical record was reviewed remotely by Dr. Ochoa and together we agree on the plan of care. Hospital Course Summary Disclaimer: The visit summary below is not to be considered part of the above Progress Note. <Jonah Ochoa - Last Filed: 03/16/18 13:22> Exam Vital signs: Temperature 97.4 F 03/14/18 11:50 Pulse Rate 80 03/14/18 11:50 Respiratory Rate 20 03/14/18 11:50 Blood Pressure 115/58 03/14/18 11:50 Pulse Oximetry 96 03/14/18 11:50 Inpatient Medications: Discontinued Medications Generic Name Dose Route Start Last Admin Trade Name Freq PRN Reason Stop Dose Admin Acetaminophen 325 - 650 mg 03/08/18 19:41 03/09/18 20:11 Tylenol PO 650 mg Q5H PRN Administration Discomfort Acetaminophen 325 - 650 mg 03/10/18 14:31 03/12/18 18:17 Tylenol PO 650 mg Q5H PRN Administration Pain Hydrocodone Bitart/Acetaminophen 1 - 2 tab 03/10/18 14:31 03/10/18 23:12 Axtell 7.5/325 PO 1 tab Q5H PRN Administration Pain Al Hydroxide/Mg Hydroxide 30 ml 03/10/18 14:31 Maalox Plus PO Q3H PRN Indigestion Albuterol/Ipratropium 3 ml 03/08/18 20:33 03/09/18 16:04 Duoneb AEROSOL 3 ml RTQID PRN Administration Albuterol/Ipratropium 3 ml 03/09/18 13:49 Duoneb AEROSOL Q4H PRN diff breathing/wheezing Albuterol/Ipratropium 3 ml 03/09/18 19:00 03/14/18 07:11 Duoneb AEROSOL 3 ml RTBID [facility] Administration Aspirin 81 mg 03/11/18 09:00 Ecotrin PO DAILY [facility] Aspirin 81 mg 03/11/18 09:00 03/14/18 08:52 Ecotrin PO 81 mg DAILY [facility] Administration Atorvastatin Calcium 40 mg 03/10/18 21:00 03/13/18 20:12 Lipitor PO 40 mg HS [facility] Administration Atropine Sulfate 0.5 mg 03/10/18 14:31 Atropine IVP Q5M PRN Bradycardia Benzonatate 100 mg 03/11/18 16:01 03/11/18 18:52 Tessalon Perles PO 100 mg TID PRN Administration Cough Bisacodyl 5 - 10 mg 03/10/18 14:31 Dulcolax PO DAILY PRN Constipation Bisacodyl 10 mg 03/10/18 14:31 Dulcolax RECTALLY DAILY PRN Constipation Budesonide 0.5 mg 03/09/18 19:00 03/14/18 07:11 Pulmicort Inhalation AEROSOL 0.5 mg RTBID [facility] Administration Carvedilol 3.125 mg 03/09/18 17:30 03/10/18 08:22 Coreg PO 3.125 mg BIDWM [facility] Administration Carvedilol 3.125 mg 03/11/18 17:30 03/14/18 08:51 Coreg PO 3.125 mg BIDWM [facility] Administration Clopidogrel Bisulfate 75 mg 03/11/18 09:00 03/14/18 08:51 Plavix PO 75 mg DAILY [facility] Administration Furosemide 40 mg 03/08/18 21:00 03/11/18 08:24 Lasix 40 Mg/4 Ml IVP 40 mg Q6HR [facility] Administration Furosemide 40 mg 03/11/18 17:00 03/14/18 08:53 Lasix 40 Mg Tab PO 40 mg 0900,1700 [facility] Administration Heparin Sodium (Beef Lung) 3,000 unit 03/09/18 05:06 03/09/18 05:14 Heparin Bolus IVP 03/09/18 05:07 3,000 unit O ONE Administration Heparin Sodium (Beef Lung) 3,000 unit 03/09/18 13:54 03/09/18 14:16 Heparin Bolus IVP 03/09/18 13:55 3,000 unit O ONE Administration Heparin Sodium (Beef Lung) 3,000 unit 03/09/18 23:15 03/09/18 23:17 Heparin Bolus IVP 03/09/18 23:16 3,000 unit O ONE Administration Heparin Sodium (Porcine) 1 each 03/08/18 17:45 Pharmacy Consult - Heparin MC 03/08/18 17:46 ONE TIME ONE Heparin Sodium (Porcine) 20,000 unit in 500 mls @ 23 mls/hr 03/08/18 19:00 23:18 Heparin Drip IV Infused .[id number] [facility] Titration Protocol 920 UNIT/HR Sodium Chloride 1,000 mls @ 75 mls/hr 03/10/18 10:00 03/10/18 20:00 Normal Saline IV Infused .[id number] [facility] Infusion Heparin Sodium (Porcine) 20,000 unit in 500 mls @ 29 mls/hr 03/09/18 23:11 13:44 Heparin Drip IV Infused .[id number] [facility] Titration Protocol 1,160 UNIT/HR Lisinopril 2.5 mg 03/09/18 14:00 03/14/18 08:50 Prinivil PO 2.5 mg DAILY [facility] Administration Lorazepam 0.5 - 1 mg 03/10/18 14:31 Ativan Inj IVP Q4H PRN Anxiety Lorazepam 0.5 - 1 mg 03/10/18 14:31 Ativan PO Q4H PRN Anxiety Magnesium Hydroxide 30 ml 03/10/18 14:31 Mom PO DAILY PRN Constipation Metoclopramide HCl 5 - 10 mg 03/10/18 14:31 Reglan IVP Q6H PRN Nausea &/or vomiting Morphine Sulfate 2 - 4 mg 03/10/18 14:31 Morphine Sulfate Inj IVP Q5M PRN Angina Morphine Sulfate 2 - 4 mg 03/10/18 14:31 Morphine Sulfate Inj IVP 03/11/18 14:30 Q2H PRN Pain Multi-Ingredient Ointment 1 applic 03/12/18 20:14 Analgesic Halfway TP QID PRN Nitroglycerin 0.5 inch 03/10/18 03:00 03/14/18 14:32 Nitro-Bid TP Not Given Q6HR [facility] Nitroglycerin 0.4 mg 03/10/18 14:31 Nitrostat SL Q5MIN3 PRN Angina Ondansetron HCl 4 mg 03/10/18 14:31 03/10/18 14:35 Zofran IVP 4 mg Q6H PRN Administration Nausea &/or vomiting Potassium Chloride 20 meq 03/09/18 08:00 03/12/18 13:28 K-Dur 20 Meq Tablet PO 20 meq TIDWM [facility] Administration Potassium Chloride 20 meq 03/13/18 08:00 03/13/18 08:23 K-Dur 20 Meq Tablet PO 20 meq BIDWM [facility] Administration Promethazine HCl 12.5 - 25 mg 03/10/18 14:31 Phenergan Inj IVP Q6H PRN Nausea &/or vomiting Sodium Chloride 10 - 80 ml 03/08/18 17:23 03/14/18 11:50 Iv Flush IV 10 ml PRN PRN Administration Flushing Warfarin Sodium 1 each 03/11/18 12:19 03/11/18 13:35 Pharmacy Consult - Warfarin MC 03/11/18 12:20 Not Given O ONE Warfarin Sodium 6 mg 03/11/18 12:39 03/11/18 13:00 Coumadin PO 03/11/18 12:40 6 mg O ONE Administration Warfarin Sodium 0 03/11/18 12:45 Coumadin Protocol MC NOTE [facility] Warfarin Sodium 2 mg 03/12/18 12:00 03/12/18 13:27 Coumadin PO 03/12/18 12:30 2 mg NOON [facility] Administration Warfarin Sodium 1 mg 03/13/18 12:00 03/13/18 11:35 Coumadin PO 03/13/18 12:30 1 mg NOON [facility] Administration Warfarin Sodium 2 mg 03/14/18 12:00 03/14/18 11:50 Coumadin PO 03/14/18 14:00 2 mg NOON [facility] Administration - Urinary Catheter Management Urethral Cath placed during this visit: no Results 03/14/18 06:31 03/14/18 06:31 Assessment and Plan - Assessment and Plan (1) Acute systolic heart failure Status: Acute (2) NSTEMI (non-ST elevated myocardial infarction) Status: Acute (3) Cardiomyopathy Status: Acute (4) Left ventricular thrombus Status: Acute (5) Hypokalemia Status: Resolved (6) Pulmonary hypertension Status: Chronic - Attestation Attestation Narrative: 03/16/18 13:22 Recommendation I agree with the above and I am involved in the formulation of the patient's plan of care. Hospital Course Summary Disclaimer: The visit summary below is not to be considered part of the above Progress Note.
[2018-03-13] MEDS: ATORVASTATIN 40 MG TABLET PO SCH (20:12)
[2018-03-14] MEDS: HEPARIN DRIP 20,000 UNIT/500 ML BAG IV SCH (00:52)
[2018-03-14] MEDS: NITROGLYCERIN 2% OINTMENT 1gm PACKET TP SCH ×3 (02:14→14:32)
[2018-03-14] MEDS: ALBUTEROL/IPRATROPIUM 2.5mg-0.5mg/3ml NEB AEROSOL SCH (07:11)
[2018-03-14] MEDS: BUDESONIDE INH.SOLN 0.5mg/2ml NEB AEROSOL SCH (07:11)
--- NOTE | 2018-03-14 07:45 | Pharmacy Consult ---
Pharmacy Consult-Heparin - Laboratory Information Heparin Plt Count 346 T/MM3 (130-400) 03/14/18 06:31 APTT 63.6 SEC (24-36) H 03/14/18 06:31 - Consult Information HEPARIN CONSULT (Recurring): PTT = 63.6 Sec. Will continue Heparin Drip at 1160 units/hr (29 ml/hr). Will recheck PTT and adjust regimen as needed. Thank you.
[2018-03-14] MEDS: LISINOPRIL 2.5 MG TABLET PO SCH (08:50)
[2018-03-14] MEDS: CLOPIDOGREL 75 MG TABLET PO SCH (08:51)
[2018-03-14] MEDS: CARVEDILOL 3.125 MG TABLET PO SCH (08:51)
[2018-03-14] MEDS: ASPIRIN *EC* 81 MG TABLET PO SCH (08:52)
[2018-03-14] MEDS: FUROSEMIDE 40 MG TABLET PO SCH (08:53)
--- NOTE | 2018-03-14 08:57 | Pharmacy Consult ---
Pharmacy Consult-Warfarin - Laboratory Information 03/12/18 03/13/18 03/14/18 06:44 06:06 06:30 INR 1.57 H 2.23 H 1.99 H - Consult Information COUMADIN CONSULT (Recurring): 63 yr old female patient 5'3" 54.2 kg admitted with a left ventricular thrombus and is currently on a Heparin Drip. Goal is a Therapeutic INR between 2-3 03/11 6 mg intial dose 03/12 2 mg INR = 1.57 03/13 1 mg INR = 2.23 03/14 INR = 1.99 will give 2 mg warfarin today. Thank you. Jessi Benito, PharmD
[2018-03-14] MEDS: SALINE FLUSH 10ml SYRINGE IV PRN (11:50)
[2018-03-14 11:51] VITALS: BP 115/58; PULSE 80; RESP 20; TEMP 97.4; O2SAT 96
[2018-03-14] MEDS ORDERED: WARFARIN 2 MG TABLET PO SCH (12:00)
--- NOTE | 2018-03-14 14:04 | Discharge Summary ---
<Sindhu Black - Last Filed: 03/14/18 18:32> Discharge Information Date of admission: 03/09/18 14:17 Anticipated date of discharge: 03/14/18 Attending Physician: Jonah Ochoa MD Primary care physician: Omari Edwards MD Consults: 03/09/18 Defibrillator Vest [Wearable Cardiac Device] [CONS] Routine Estimated Length of Need: 4 months (A new order will be required to extend use) REASON FOR DEFIBRILLATOR VEST: Cardiac Arrest due to VF or Sustained VT: No MD with an EF of < or = to 35%: Yes DEFIBRILLATOR VEST SETTINGS: VT Heart Rate Threshold: 150 BPM VF Heart Rate Threshold: 200 BPM TREATMENT ENERGY (JOULES) 1st: 150 J 2nd: 150 J 3rd: 150 J 4th: 150 J 5th: 150 J 03/10/18 14:31 Outpt Cardiac Rehab Consult [CONS] Routine 03/11/18 14:17 Dietary Consult [CONS] Routine Comment: Reason For Exam: CHF, NA and fluid restrisction diet - Discharge Diagnosis (1) Acute systolic heart failure Status: Acute (2) NSTEMI (non-ST elevated myocardial infarction) Status: Acute (3) Cardiomyopathy Status: Acute (4) Left ventricular thrombus Status: Acute (5) Hypokalemia Status: Resolved (6) Pulmonary hypertension Status: Chronic Acute systolic heart failure, NSTEMI, Dilated nonischemic cardiomyopathy, Left ventricular thrombus, Pulmonary hypertension - Procedures Procedures: Date of Exam: 03/10/18 Type of Exam(s): CA heart cath LT DATE OF PROCEDURE March 10, 2018 The patient is a 63-year-old lady who presented with severe congestive heart failure, LV dysfunction and elevated troponin. She was referred for further evaluation by cardiac catheterization and possible intervention. Informed consent was obtained after explaining the procedure and the potential risks to the patient who agreed to proceed with the procedure. PROCEDURE 1. Left heart catheterization. 2. Coronary angiography. 3. Primary stent of mid RCA using a 2.75 x 15 drug-eluting EluNIR drug-eluting stent. 4. Right femoral angiography to visualize the vessel for closure device. 5. Successful Mynx deployment for hemostasis. TECHNIQUE She was prepped and draped in the usual sterile techniques. Conscious sedation was performed using Versed. 1% lidocaine was used for local anesthesia. Using modified Seldinger technique, arterial access was obtained into the right femoral artery with placement of a 6-Croatian arterial sheath. CORONARY ANGIOGRAPHY Left main was free of significant lesions. Left anterior descending artery was a towjb-lc-xrkpwy-caliber vessel with about 40% mid stenosis. Diagonals were free of significant lesions. Left circumflex artery was a egalz-bi-bpprka- caliber vessel and nondominant with no significant lesions. Right coronary artery was dominant with 90% eccentric mid stenosis. After reviewing the images we decided to proceed with intervention on RCA. Additional 1500 units of heparin were administered. The patient was on heparin drip. A 6-Croatian JR-4 guide with side holes was advanced to the ostium of the right coronary artery. The lesion was crossed using a Runthrough wire. A 2.75 x 15 drug-eluting EluNIR stent was delivered to the lesion site where it was deployed by inflating the balloon to 18 atmospheres. The next angiogram showed excellent results with no residual stenosis. Right femoral angiography showed patent common femoral, proximal SFA and profunda and therefore Mynx was used for hemostasis. IMPRESSION 1. Coronary artery disease as described above. 2. Successful primary stent of mid RCA using a 2.75 x 15 drug-eluting EluNIR stent. 3. Successful Mynx deployment for hemostasis. PLAN Will keep her on dual antiplatelet therapy at least for year and continue risk modification. - Laboratory Labs: 03/14/18 06:31 03/14/18 06:31 History of Present Illness HPI: Terrie is a 63 year old female who is known to Dr. Ochoa with a history of MD, CAD with PTCA of 1st diagonal and RCA, HTN, HLD and nicotine dependence who presented to the [facility] ED due to severe dyspnea yesterday. She reports her breathing has been labored with NGO since she had pneumonia at the beginning of January but became markedly worse yesterday. She reports increased abdominal girth and firmness, as well as LE edema over the past week. She was seen in the ED here at [facility] [place] [facility] on 01/29/18 and prescribed Levaquin and Duoneb treatments for pneumonia, she finished the course and continues Duoneb treatments. She did follow up with Dr. Edwards 3 weeks after her diagnosis and he started her on Zantac for her stomach which she was unable to tolerate. She reports that she has not felt well since that illness but was unable to lay flat in her bed for a couple of months prior. She is examined in CCU. She is sitting up in bed in no distress on 3L/NC. She has a frequent moist cough and chest heaviness but denies dyspnea, fever, chills , sore throat, chest pain, palpitations, N/V/D, dysuria. Hospital Course This is a general summary of the patient's hospital course. For more details refer to the complete medical record. Hospital course: 03/09/18 Acute systolic HF: Has JVD, Dyspnea, hypoxia, ascites, pedal edema - 2D echo: EF 20-25% - BNP 25705 - Diuresis with Lasix 40mg IV Q6H - Replace potassium - Check Mag - CXR this am NSTEMI: Trend serial troponins. 1) 0.204, 2) 0.199, 3) 0.212 - EKG ST, NSSTT changes - Heparin drip per pharmacy consult - 2D echo pending - Will need LHC when able to tolerate laying flat CM: EF 20-25% - Coreg 3.125mg BID, Lisinopril 5mg daily - Life Vest - LHC to determine if ischemic or nonischemic LV thrombus: Heparin drip per pharmacy consult - LE venous doppler for DVT Hypokalemia:Give additional 40meq KCl no - Continue KCl 20meq TID 03/10/18 [facility] with intervention, see report above - Continue OWEN with Plavix and Aspirin 03/11/[address] today Restrict fluids to 2L/day - Strict I&O - Remove Hernández please - Okay to transfer to Surgical - Dietary consult for CHF, Fluid. Na restrictions. - Change IV Lasix to PO 40mg BID - Continue to monitor renal & electrolytes - Monitor cardiac telemetry - EKG in am 03/12/18 INR 1.57 today, continue Heparin drip until therapeutic - HGB and platelets stable -Continue current Lasix, monitor renal & electrolytes - Decrease Potassium to BID Pateint was examined by Sindhu denise APRN, and finding were discussed with Dr. Ochoa. Clinical record was reviewed remotely by Dr. Ochoa and together we agree on the plan of care. 03/13/18 INR 2.2 today, continue Heparin. Hgb and platelets stable K+ 5.1, hold K+ replacement Pateint was examined by , Sindhu Black APRN, and finding were discussed with Dr. Ochoa. Clinical record was reviewed remotely by Dr. Ochoa and together we agree on the plan of care. Time spent with patient: 25 - 35 minutes Resuscitation Status: Full Code Exam Vital signs: Temperature 97.4 F 03/14/18 11:50 Pulse Rate 80 03/14/18 11:50 Respiratory Rate 20 03/14/18 11:50 Blood Pressure 115/58 03/14/18 11:50 Pulse Oximetry 96 03/14/18 11:50 - Constitutional no acute distress, well nourished, cooperative - Routine HEENT Exam Head: Present: normocephalic ENT: Present: mucous membranes moist - Routine Neck Exam Absent: JVD, carotid bruit - Routine Chest/Breast/Axilla Exam Chest wall: Absent: tenderness - Routine Respiratory Exam Present: diminished air movement. Absent: dyspnea - Routine Cardiovascular Exam Present: RRR, no murmur - Routine Abdominal Exam Present: soft, normoactive bowel sounds - Routine Extremities Exam Present: no edema - Routine Skin Exam Present: intact, dry, warm - Routine Neurological Exam Present: alert, oriented X3 - Routine Psychiatric Exam Present: normal affect, normal thought process Results 03/14/18 06:31 03/14/18 06:31 Coagulation 03/14/18 Range/Units 06:31 APTT 63.6 H (24-36) SEC CBC 03/13/18 03/14/18 Range/Units 14:00 06:31 WBC 7.9 9.4 (4.5-11.0) T/MM3 RBC 4.15 4.04 (4.00-5.20) M/MM3 Hgb 12.1 11.8 L (12-16) GM/DL Hct 38.8 37.3 (36-46) % Plt Count 346 346 (130-400) T/MM3 Comprehensive Metabolic Panel 03/13/18 03/14/18 Range/Units 14:00 06:31 Sodium 139 137 (134-144) MEQ/L Potassium 5.1 H 4.6 (3.6-5) MEQ/L Chloride 96 L 97 L (98-107) MEQ/L Carbon Dioxide 32 H 30 (22-30) MEQ/L BUN 21.0 H 23.0 H (7-17) MG/DL Creatinine 1.1 1.1 (0.7-1.2) mg/dL Glucose 96 114 H (65-110) MG/DL Calcium 9.8 9.3 (8.4-10.2) MG/DL Intake and Output 03/13/18 03/14/18 03/14/18 22:59 06:59 14:59 Intake Total 434.3 / 434.3 973.133 / 973.133 Output Total 775 / 775 1500 / 1500 1400 / 1400 Balance -775 / -775 -1065.7 / -1065.7 -426.867 / -426.867 Intake: IV 434.3 / 434.3 373.133 / 373.133 Heparin Drip 20,000 unit In 500 434.3 / 434.3 373.133 / 373.133 ml @ 1,160 UNIT/HR 29 mls/hr IV .[id number] [facility] Rx#:[id number] Oral 600 / 600 Output: Urine 400 / 400 1500 / 1500 1400 / 1400 Urine Amount (Catheter) 375 / 375 Other: Urine Appearance Clear Clear Clear Urine Color Pale Pale Yellow Urine Odor Normal Normal Normal Stool Color Brown Stool Consistency Soft Formed Size of Bowel Movement Small Small # Voids 1 # Bowel Movements 1 1 Weight 110 lb 0.171 oz Patient Weight 03/15/18 06:59 Weight 110 lb 0.171 oz - Imaging and Cardiology Imaging & Cardiology Narrative: DATE OF PROCEDURE March 08, 2018 This is a two-dimensional echo with spectral Doppler, color-flow and M-mode. It was obtained in a patient with congestive heart failure and chest pain. Left atrium is dilated. Left ventricle end-diastolic dimension is normal. Left ventricle wall thickness is normal. Severe global hypokinesia is present with ejection fraction no more than 20%. Right atrium is dilated. Right ventricle is normal. Aortic root dimension is normal. Mitral valve is morphologically normal with moderate mitral regurgitation. Aortic valve is a trileaflet structure with no stenosis. Mild aortic insufficiency is present. Tricuspid valve shows moderate tricuspid regurgitation with severe pulmonary hypertension with estimated pulmonary artery systolic pressure of 75. Pulmonary valve shows moderate pulmonary insufficiency. There is no pericardial effusion. Left ventricular cavity shows apical thrombus. IMPRESSION 1. Severe global hypokinesia with ejection fraction no more than 20%. 2. Left ventricular apical thrombus. 3. Biatrial dilation. 4. Moderate mitral regurgitation. 5. Mild aortic insufficiency. 6. Moderate tricuspid regurgitation with severe pulmonary hypertension with estimated pulmonary artery systolic pressure of 75. 7. Moderate pulmonary insufficiency. 03/14/18 14:02 03/14/18 14:02 Date of Exam: 03/09/18 Ordering Provider: Sindhu Black APRN Type of Exam(s): XR chest 1V Reason for Exam(s): dyspnea EXAM: XR chest 1V HISTORY: dyspnea COMPARISON: Prior examination dated 01/29/2018 FINDINGS: The heart is enlarged. The trachea is midline is no evidence mediastinal widening. There is mild pulmonary vascular congestion and hazy opacities at the lung bases right greater than left. There is blunting of the right costophrenic angle. The left costophrenic angle is clear. The bony thorax appears stable. There is artifact from cardiac monitoring lead wires over the chest. IMPRESSION: 1. Cardiomegaly with early congestive changes. 2. Hazy opacities at the lung bases, right greater than left that may represent superimposed atelectasis or early infiltrate. 3. Small right pleural effusion. 03/14/18 14:02 Date of Exam: 03/09/18 Ordering Provider: Sindhu Black APRN Type of Exam(s): US venous doppler LE BI Reason for Exam(s): cardiac thrombus EXAM: US venous doppler LE BI HISTORY: cardiac thrombus COMPARISON: No prior studies available for comparison. Using duplex and color flow technology the deep venous system of the legs were evaluated throughout their length. No abnormal findings were demonstrated, specifically no intraluminal thrombus is seen. The deep venous system appears completely compressible throughout its length bilaterally. At the same time it shows the normal properties of spontaneous flow as well as augmentation. IMPRESSION: Negative venous ultrasound of both lower extremities. - EKG Interpretation EKG: sinus rhythm (LAE, Septal MD unknown age) Discharge Plan - Med Rec/Dispo Referrals/Follow Up: Jonah Ochoa MD [Physician] - 03/30/18 9:40 am [place] Instructions: NVC Heart Cath, Lisinopril (By mouth) (Prinivil, Zestril) , Wearable Cardioverter Defibrillator (GEN) Prescriptions: New # Warfarin Protocol # [Coumadin Protocol] 2 mg MC DAILY #30 misc Aspirin *EC* [Ecotrin] 81 mg PO DAILY #30 tab Atorvastatin [Lipitor] 40 mg PO HS #30 tab Carvedilol [Coreg] 3.125 mg PO BIDWM #60 tab Clopidogrel [Plavix] 75 mg PO DAILY #30 tab Furosemide [Lasix 40 mg Tab] 40 mg PO 0900,1700 #60 tab Lisinopril [Prinivil] 2.5 mg PO DAILY #30 tab Nitroglycerin [Nitrostat] 0.4 mg SL Q5MIN3 PRN #25 tab PRN Reason: Angina Potassium Chloride [K-DUR 20 mEq Tablet] 20 meq PO DAILY #30 tab Continue Albuterol/Ipratropium [Duoneb] 1 unit AEROSOL Q4H PRN PRN Reason: diff breathing/wheezing Nitroglycerin 0.4 mg SL PRN #0 Acetaminophen [Acetaminophen Extra Strength] 500 mg PO BID - Disposition 01 Discharged Home, Self-Care - Dismissal Complete Discharge Instructions are:: Complete <Jonah Ochoa - Last Filed: 03/16/18 13:25> Discharge Information Date of admission: 03/09/18 14:17 Attending Physician: Jonah Ochoa MD Primary care physician: Omari Edwards MD Consults: 03/09/18 Defibrillator Vest [Wearable Cardiac Device] [CONS] Routine Estimated Length of Need: 4 months (A new order will be required to extend use) REASON FOR DEFIBRILLATOR VEST: Cardiac Arrest due to VF or Sustained VT: No MD with an EF of < or = to 35%: Yes DEFIBRILLATOR VEST SETTINGS: VT Heart Rate Threshold: 150 BPM VF Heart Rate Threshold: 200 BPM TREATMENT ENERGY (JOULES) 1st: 150 J 2nd: 150 J 3rd: 150 J 4th: 150 J 5th: 150 J 03/10/18 14:31 Outpt Cardiac Rehab Consult [CONS] Routine 03/11/18 14:17 Dietary Consult [CONS] Routine Comment: Reason For Exam: CHF, NA and fluid restrisction diet - Discharge Diagnosis (1) Acute systolic heart failure Status: Acute (2) NSTEMI (non-ST elevated myocardial infarction) Status: Acute (3) Cardiomyopathy Status: Acute (4) Left ventricular thrombus Status: Acute (5) Hypokalemia Status: Resolved (6) Pulmonary hypertension Status: Chronic - Laboratory Labs: 03/14/18 06:31 04/16/18 06:31 Hospital Course This is a general summary of the patient's hospital course. For more details refer to the complete medical record. Exam Vital signs: Temperature 97.4 F 03/14/18 11:50 Pulse Rate 80 03/14/18 11:50 Respiratory Rate 20 03/14/18 11:50 Blood Pressure 115/58 03/14/18 11:50 Pulse Oximetry 96 03/14/18 11:50 Results 03/14/18 06:31 03/14/18 06:31 Attestation Narriative - Attestation Attestation Narrative: 03/16/18 13:25 Recommendation After examining the patient I agree with the above assessment. I am involved in the formulation of the patient's plan of care.
== END 2018-03-14 15:45 | disposition home or self-care (01) | DRG 246 ==
LOC: CCU → PREINTOOBSV 17:32 → SRG 03-11 16:06
PROVIDERS: ADMIT Internal Medicine Cardiovascular Disease; ATTEND Internal Medicine Cardiovascular Disease

== ENCOUNTER 2018-05-17 13:31 | Observation (INO) ==
[2018-05-17] MEDS ORDERED: NS FLUSH BAG 500ml IV PRN (16:15)
[2018-05-17 16:41] VITALS: BMI 19.1
--- NOTE | 2018-05-17 16:43 | History & Physical Report ---
History of Present Illness Date: 05/17/18 Chief complaint: fatigue, dizziness/lightheadedness HPI: Patient is a 63 yo female who sees Dr. Edwards for primary care and Dr. Ochoa for cardiomyopathy/CHF. Pt c/o dizziness/lightheadedness, SOA, "legs buckling, " and severe fatigue for at least the past 3 weeks. She has had black stools over the past 3 wks but denies any black stools over the past week. She had labs drawn yesterday in her doctor's office and had an appt with Dr. Ochoa here in [place] this morning. She was notified of her lab results (hgb 4.8) after she was back home in [place] following her appt with Dr. Ochoa. She was then sent to [facility] ER in [place] where repeat hgb was 5.4. (Hgb checked 03/08/18 was 14.0). She was directly admitted to [facility] for blood transfusion and further w-u of presumed GI bleeding. Patient was started on warfarin in February 2018 following an NSTEMI and finding of a LV thrombus. INR today is 1.53 (INR 3.11 on 05/04/18). She is chronically on Plavix and ASA 81mg. She was recently hospitalized on 03/10/[address] Ochoa for acute systolic heart failure, NSTEMI, dilated cardiomyopathy, L ventricular thrombus and pulmonary HTN. She had a L heart cath with a stent placement in the mid RCA (EluNIR drug eluting stent). Echo performed 03/08/18 showed severe global hypokinesia with EF of <20%, L ventricular apical thrombus, biatrial dilation, moderate tricuspid regurgitation with severe pulmonary HTN with pulmonary artery systolic pressure of 75. She is currently wearing a defibrillator vest. Review of Systems All systems PM: 10-point ROS was reviewed, no additional remarkable complaints except (fatigue, dizziness, SOA, leg weakness) Past Medical History Medical History Updates: LV thrombus. Cardiomyopathy. Pulmonary HTN. COPD. HTN. HLD. CAD. CHF (global hypokinesia -EF<20%). 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 Medications Home Medications Medication Instructions Recorded Confirmed Type Acetaminophen [Acetaminophen Extra 500 mg PO BID 03/08/18 05/17/18 History Strength] Albuterol/Ipratropium [Duoneb] 1 unit AEROSOL Q4H PRN 03/08/18 05/17/18 History Aspirin *EC* [Ecotrin] 81 mg PO DAILY #30 tab 03/14/18 05/17/18 Rx Atorvastatin [Lipitor] 40 mg PO HS #30 tab 03/14/18 05/17/18 Rx Clopidogrel [Plavix] 75 mg PO DAILY #30 tab 03/14/18 05/17/18 Rx Nitroglycerin [Nitrostat] 0.4 mg SL Q5MIN3 PRN #25 tab 03/14/18 05/17/18 Rx # Warfarin Protocol # [Coumadin 1.5 mg PO DAILY 05/17/18 05/17/18 History Protocol] Furosemide [Lasix] 20 mg PO DAILY 05/17/18 05/17/18 History Allergies Allergy/AdvReac Type Severity Reaction Status Date / Time No Known Allergies Allergy Unverified 01/29/18 01:03 Exam Vital Signs: Temperature 99.2 F 05/17/18 15:19 Pulse Rate 106 H 05/17/18 15:19 Respiratory Rate 18 05/17/18 15:19 Blood Pressure 118/75 05/17/18 15:19 Pulse Oximetry 100 05/17/18 15:19 - Constitutional Present: no acute distress, well nourished, well developed, thin Comments: pale - Routine HEENT Exam Head: Present: normocephalic, atraumatic Eye: Present: EOMI, PERRL ENT: Present: mucous membranes moist, oropharynx clear Comments: edentulous - Routine Neck Exam Present: supple. Absent: lymphadenopathy, thyromegaly - Routine Respiratory Exam Present: CTA bilaterally. Absent: wheezes - Routine Cardiovascular Exam Present: RRR, no murmur - Routine Abdominal Exam Present: soft, normoactive bowel sounds. Absent: tenderness, distended - Routine Extremities Exam Present: no edema, normal capillary refill - Routine Skin Exam Present: dry, warm - Routine Neurological Exam Present: alert, oriented X3, CN II-XII intact - Routine Psychiatric Exam Present: normal affect, cooperative Results - Labs CBC & Chem 7: 05/17/18 18:14 Labs: Outside labs performed 05/16/18 CBC-WBC 5.3, RBC 2.24, hemoglobin 4.8, hematocrit 17.6, MCV 79, MCH 21.4, MCHC 27.3, platelets 593 CMP-negative with exception of glucose 130, GFR 50. ProBNP-4340 INR trend-05/17/18-1.3, 05/04/18-3.11 Assessment and Plan Assessment and Plan: Assessment Melena -r/o upper GI bleed Symptomatic anemia (Hgb 5.4 on admission) w/ lightheadedness, dyspnea, weakness - likely from acute vs chronic blood loss (hgb 03/08/18=14.0) LV thrombus - Coumadin initiated on dx 03/16 Cardiomyopathy Pulmonary HTN COPD HTN HLD CAD CHF (global hypokinesia -EF<20%) - defibrillator vest H/o gastritis (EGD as teenager, has never had colonoscopy), empirical tx for PUD several yrs ago with resolution of sxs Plan Admit, OBS Transfuse 2 U PRBC's, Type and hold 2 U. Give Lasix 40mg IV after 1st unit. Consult Dr. Maurice - he will see pt tonight and likely scope her tomorrow. Check P2Y-[address] Ochoa - he will repeat echo tomorrow to make further decisions re : anticoagulation. He rec continuing Plavix for now and hold ASA and Coumadin. Dr Ochoa feels pt should be OK for undergoing scopes w/ Dr. Maurice. Continue home meds except Coumadin and ASA. Pt denies use of Coreg as recommended on DC in 03/[address] Ochoa can discuss with pt further. OK to have cardiac diet now. Pt on fluid restriction for CHF. Further diet orders per Dr. Maurice pending procedures. Pantoprazole 40mg IV BID for empiric tx of PUD/ppx Telemetry/Life Vest. I&O's, daily wts. SCDs for VTE ppx Pt requests DNR code status. SALEEM Fenton (sister) Care to return to Dr. Edwards on DC. Discussed with Dr. Maurice, Dr. Ochoa, and Dr. Nascimento. DVT Prophylaxis: SCD's GI Prophylaxis: Protonix Resuscitation Status: Do Not Resuscitate - Physician Narrative Physician: other (Sorin Nascimento MD) Narrative: Date: 05/17/18 Time: 161 I personally examined and assessed the patient, and agree with the above assessment and plan. Pt with melanotic stools, no recent EGD to eval. +lightheadedness. On exam, RRR, lungs clear. Transfuse 2 units PRBCs for now. Follow Hgb. Consult surgery for endoscopy. Hold ASA, coumadin. Cont plavix given recent BETHANY. Appreciate cardiology recs. Sorin Nascimento MD. Hospital Course Summary Disclaimer: The visit summary below is not to be considered part of the above Progress Note. Hospital Course: 05/17/17 Admit, OBS Transfuse 2 U PRBC's, Type and hold 2 U. Give Lasix 40mg IV after 1st unit. Consult Dr. Maurice - he will see pt tonight and likely scope her tomorrow. Check P2Y-[address] Ochoa - he will repeat echo tomorrow to make further decisions re : anticoagulation. He rec continuing Plavix for now and hold ASA and Coumadin. Dr Ochoa feels pt should be OK for undergoing scopes w/ Dr. Maurice. Continue home meds except Coumadin and ASA. Pt denies use of Coreg as recommended on DC in 03/[address] Ochoa can discuss with pt further. OK to have cardiac diet now. Pt on fluid restriction for CHF. Further diet orders per Dr. Maurice pending procedures. Pantoprazole 40mg IV BID for empiric tx of PUD/ppx Telemetry/Life Vest. I&O's, daily wts. SCDs for VTE ppx Pt requests DNR code status. SALEEM Fenton (sister) Care to return to Dr. Edwards on DC. Discussed with Dr. Maurice, Dr. Ochoa, and Dr. Nascimento.
[2018-05-17] MEDS ORDERED: FUROSEMIDE 40 MG/4 ML INJECTION IVP ONE (17:05)
[2018-05-17] MEDS ORDERED: NICOTINE PATCH REMOVAL TD PRN (17:14)
[2018-05-17] MEDS ORDERED: NICOTINE 14 MG PATCH TD PRN (17:14)
[2018-05-17] MEDS ORDERED: ALBUTEROL/IPRATROPIUM 2.5mg-0.5mg/3ml NEB AEROSOL PRN (17:43)
[2018-05-17] MEDS ORDERED: ACETAMINOPHEN 500 MG TABLET PO PRN (17:43)
[2018-05-17] MEDS ORDERED: NITROGLYCERIN 0.4 MG SUBLINGUAL TABLET SL PRN (17:43)
--- NOTE | 2018-05-17 18:58 | General Surgery Consult Note ---
Consult date: 05/17/18 Attending Physician: Eric Nascimento MD [facility] Patient Stated Medical History Other HEENT Yes: Reading GLASSES Hypertension Yes Myocardial Infarction Yes Bronchitis Yes Pneumonia Yes Gastroesophageal Reflux Yes Disease Anemia Yes Medical History Updates: LV thrombus. Cardiomyopathy. Pulmonary HTN. COPD. HTN. HLD. CAD. CHF (global hypokinesia -EF<20%). H/o gastritis Surgical History: -- 33 years ago. -cardiac stents March and May 2010, and February 2018 Dr. Ochoa in [place]. -EGD showed gastritis and ulcer in treated with "a spoon full of white chalky liquid a few times a day" Family History: Father - DM, [place] Mother - living in good health Sister - Cervical cancer Brother - DM - Social History Smoking status: Current every day smoker (1/2ppd) Substance use type: does not use Alcohol intake: current Alcohol intake frequency: 0-2 drinks per day Housing: apartment Household members: none Current occupational status: unemployed Current residence: Apartment/Private Home Medications Home Medications Medication Instructions Recorded Confirmed Type Acetaminophen [Acetaminophen Extra 500 mg PO BID 03/08/18 05/17/18 History Strength] Albuterol/Ipratropium [Duoneb] 1 unit AEROSOL Q4H PRN 03/08/18 05/17/18 History Aspirin *EC* [Ecotrin] 81 mg PO DAILY #30 tab 03/14/18 05/17/18 Rx Atorvastatin [Lipitor] 40 mg PO HS #30 tab 03/14/18 05/17/18 Rx Clopidogrel [Plavix] 75 mg PO DAILY #30 tab 03/14/18 05/17/18 Rx Nitroglycerin [Nitrostat] 0.4 mg SL Q5MIN3 PRN #25 tab 03/14/18 05/17/18 Rx # Warfarin Protocol # [Coumadin 1.5 mg PO DAILY 05/17/18 05/17/18 History Protocol] Furosemide [Lasix] 20 mg PO DAILY 05/17/18 05/17/18 History Allergies Allergy/AdvReac Type Severity Reaction Status Date / Time No Known Allergies Allergy Unverified 01/29/18 01:03 Review of Systems 10-point ROS: negative except for HPI and the following: - General General: Present: other (leg weakness, dizziness) - Eyes/Ears/Nose/Throat Ear Nose Throat: Present: other (no teeth) - Respiratory Respiratory: Present: difficulty breathing (with any exertion) - Gastrointestinal Gastrointestinal: Absent: nausea - Hematologic/Lymphatic Hematologic/Lymphatic: Present: easy bruising, use of blood thinners (Plavix) - Vital Signs Last Vital Signs Temp 99.2 F 05/17/18 15:19 Pulse 106 H 05/17/18 15:19 Resp 18 05/17/18 15:19 BP 118/75 05/17/18 15:19 Pulse Ox 100 05/17/18 15:19
--- NOTE | 2018-05-17 20:11 | Consultation ---
DATE OF SERVICE 05/17/2018 FINDINGS Mrs. Atkins is a 63-year-old female whom I was asked to see this evening as a result of her finding of marked anemia upon laboratory evaluation. Patient informs me that she had seen Dr. Messina's assistant center director in [place] recently as a result of feeling somewhat weak and dizzy. She also stated that she has noted increasing shortness of breath. Patient states that she had labs drawn and was supposed to be notified of these results. The patient states that she then went to see Dr. Hyde about her heart. Patient informs me that she has had several "heart issues." Patient informs me that about a month ago she had suffered a heart attack and had a "third stent" put within her heart. The patient states that she had seen Dr. Ochoa's office who had requested lab work that was drawn from [place]. Patient states that after getting home she was informed that her lab was critically low. She was instructed to return back to the emergency room in [place]. Apparently her hemoglobin was found to be 5.4 and the patient was subsequently transferred to [facility] for further care. Upon questioning the patient she states that she has never undergone prior endoscopic evaluation of her colon. She denies any family history specifically for colon cancer. She states that she thinks that perhaps her maternal grandmother may have had colon cancer. She denies, however, any family history for colon cancer in a first-degree relative. The patient denies any history for melena or hematochezia. Denies any history for abdominal pain or discomfort. PAST MEDICAL HISTORY, PAST SURGICAL HISTORY, MEDICATIONS, ALLERGIES, SOCIAL HISTORY, FAMILY HISTORY, REVIEW OF SYSTEMS Performed by my nurse practitioner, David Watts APRN. PHYSICAL EXAMINATION GENERAL: Mrs. Atkins is a 63-year-old female who appears older than her stated age. She doesn't appear to be in any acute distress. VITAL SIGNS: Temperature 99.2, pulse 106, respirations 18, blood pressure 118/ 75, SAO2 100% on room air. HEENT: Normocephalic. Pupils are equally round and react to light and accommodation. NECK: Supple without lymphadenopathy. CHEST: Clear to auscultation bilaterally. HEART: Regular rate and rhythm. Normal S1 and S2 without gallops, murmurs or clicks. ABDOMEN: Palpation of the abdomen reveals it to be soft and nontender. I do not appreciate any evidence for hepatosplenomegaly nor abnormal masses. EXTREMITIES: Without clubbing, cyanosis, or edema. NEURO: Cranial nerves II-XII grossly intact. Patient is without focal motor or sensory deficits. LABORATORY/RADIOGRAPHIC EVALUATION I did review the admission history and physical and it is reported that the patient's hemoglobin obtained through her primary care physician's office was 4.8. Recheck in [facility]'s emergency room at [place] was 5.4. The patient's INR was 1.53 today apparently. There is no lab currently within our electronic medical record. P2Y12 platelet function test has been ordered as a result of the fact that the patient is on Plavix currently. ASSESSMENT 63-year-old female with significant history for atherosclerotic coronary artery disease who is found to be significantly anemic upon laboratory evaluation. PLAN I informed the patient that as a general rule we typically, of course, would proceed with endoscopy in somebody who has such marked anemia. I would like, however, to discuss her case specifically with the hospitalist and her input output clerk. Apparently the patient does have a decreased ejection fraction of 20% and, as stated above, recently had a myocardial infarction. If Cardiology feels that it is safe to proceed with endoscopy from a cardiac standpoint I would recommend that we proceed with both an EGD and colonoscopy for further evaluation of her anemia. I agree with current management of this patient. She is undergoing blood transfusion. She is being treated empirically for peptic ulcer disease and is currently on Protonix 40 mg IV b.i.d. Will wait her P2Y12 results and discuss the case further tomorrow with hospitalist and Cardiology. ARBEN
[2018-05-17] MEDS: ATORVASTATIN 40 MG TABLET PO SCH (23:06)
[2018-05-17] MEDS: PANTOPRAZOLE 40 MG INJECTION IVP SCH (23:06)
[2018-05-18] MEDS: CLOPIDOGREL 75 MG TABLET PO SCH (08:36)
[2018-05-18] MEDS: PANTOPRAZOLE 40 MG INJECTION IVP SCH ×2 (08:36→20:49)
[2018-05-18] MEDS: FUROSEMIDE 20 MG TABLET PO SCH (08:36)
[2018-05-18] MEDS: SALINE FLUSH 10ml SYRINGE IV PRN ×2 (08:36→20:49)
--- NOTE | 2018-05-18 10:37 | Cardiology Consult Note ---
<Sindhu Black - Last Filed: 05/19/18 11:56> History of Present Illness Consult date: 05/17/18 Requesting physician: Eric Nascimento Consult reason: pre-op evaluation Chief complaint: dizziness History of present illness: Terrie is a 63 year old female who is known to Dr. Ochoa with a history of AK, CAD with PTCA/BETHANY of 1st diagonal and RCA, on dual antiplatelet therapy, LV thrombus on chronic anticoagulation on Warfarin, Dilated cardiomyopathy, EF 20%, currently wearing a defibrillator vest, HTN, HLD and nicotine dependence who was seen in the clinic by Dr. Ochoa yesterday for complaint of dizziness, lightheadedness and weakness in her legs for at least the past 3 weeks. He discontinued Amlodipine and Potassium, decreased Lasix dose to 20mg daily and scheduled lab in 1 week. She had labs drawn on Wednesday in Dr. Edwards's office. She was notified of her lab results (hgb 4.8) after she was back home in [place] and was sent to [facility] ED where repeat hgb was 5.4. (Hgb checked 03/08/18 was 14.0). INR today is 1.53 (INR 3.11 on 05/04/18). She was directly admitted to [facility] for blood transfusion and further evaluation and management of presumed GI bleeding. Dr. Ochoa is consulted due to patient's history of LV thrombus and GI bleeding on chronic anticoagulation. Review of Systems - Constitutional Constitutional: Present: fatigue, weakness. Absent: chills, fever(s) - EENMT Eyes: Absent: change in vision Balance: Absent: vertigo Mouth/Throat: Absent: sore throat - Cardiovascular Cardiovascular: Present: dyspnea on exertion. Absent: chest pain, palpitations , syncope, orthopnea, edema, heart murmur Vascular: Absent: pedal edema - Respiratory Respiratory: Present: cough, dyspnea on exertion. Absent: dyspnea - Gastrointestinal Gastrointestinal: Present: melena. Absent: abdominal pain, diarrhea, nausea, vomiting - Genitourinary Genitourinary: Absent: dysuria - Integumentary/Breasts Integumentary: Absent: rash - Neurological Neurological: Present: dizziness, weakness - Endocrine Endocrine: Absent: palpitations PFSH Patient Stated Medical History Other HEENT Yes: Reading GLASSES Hypertension Yes Myocardial Infarction Yes Bronchitis Yes Pneumonia Yes Gastroesophageal Reflux Yes Disease Anemia Yes Medical History Updates: LV thrombus. Cardiomyopathy. Pulmonary HTN. COPD. HTN. HLD. CAD. CHF (global hypokinesia -EF<20%). H/o gastritis Surgical History: , cardiac stents x 3 Family History: F - AK in his 40's, age 59 of AK GF - AK, age 63 Bro - DM, HTN, HLD Daughter - HTN, HLD - Social History Smoking status: Current every day smoker (1/2ppd) Substance use type: does not use Alcohol intake: current Alcohol intake frequency: 0-2 drinks per day Housing: apartment Household members: none Current occupational status: unemployed Current residence: Apartment/Private Home Medications Home Medications Medication Instructions Recorded Confirmed Type Acetaminophen [Acetaminophen Extra 500 mg PO BID 03/08/18 05/17/18 History Strength] Albuterol/Ipratropium [Duoneb] 1 unit AEROSOL Q4H PRN 03/08/18 05/17/18 History Aspirin *EC* [Ecotrin] 81 mg PO DAILY #30 tab 03/14/18 05/17/18 Rx Atorvastatin [Lipitor] 40 mg PO HS #30 tab 03/14/18 05/17/18 Rx Clopidogrel [Plavix] 75 mg PO DAILY #30 tab 03/14/18 05/17/18 Rx Nitroglycerin [Nitrostat] 0.4 mg SL Q5MIN3 PRN #25 tab 03/14/18 05/17/18 Rx # Warfarin Protocol # [Coumadin 1.5 mg PO DAILY 05/17/18 05/17/18 History Protocol] Furosemide [Lasix] 20 mg PO DAILY 05/17/18 05/17/18 History Carvedilol [Coreg] 1 tab PO BIDWM #60 tab 05/19/18 Rx Enoxaparin [Lovenox] 75 mg SQ DAILY #6 syringe 05/19/18 Rx Lisinopril [Prinivil] 2.5 mg PO DAILY #30 tab 05/19/18 Rx Pantoprazole Sodium [Protonix] 1 tab PO ACBID #60 tab 05/19/18 Rx Sucralfate [Carafate] 1 gm PO ACHS #120 tab 05/19/18 Rx Allergies Allergy/AdvReac Type Severity Reaction Status Date / Time No Known Allergies Allergy Unverified 01/29/18 01:03 Exam Vital signs: Temperature 96.5 F L 05/18/18 07:57 Pulse Rate 90 05/18/18 07:57 Respiratory Rate 16 05/18/18 07:57 Blood Pressure 107/69 05/18/18 07:57 Pulse Oximetry 97 05/18/18 07:57 - Constitutional no acute distress, thin, cooperative - Routine HEENT Exam Head: Present: normocephalic ENT: Present: mucous membranes moist - Routine Neck Exam Absent: JVD, carotid bruit - Routine Chest/Breast/Axilla Exam Chest wall: Absent: tenderness - Routine Respiratory Exam Present: CTA bilaterally. Absent: rales, wheezes - Routine Cardiovascular Exam Present: RRR, no murmur - Routine Abdominal Exam Present: soft, non tender - Routine Extremities Exam Present: no edema - Routine Skin Exam Present: intact, dry, warm - Routine Neurological Exam Present: alert, oriented X3 - Routine Psychiatric Exam Present: normal affect, normal thought process Results 05/19/18 06:17 05/19/18 06:17 Cardiac Enzymes 05/17/18 Range/Units 18:14 AST 23 (14-36) U/L CBC 05/18/18 05/18/18 Range/Units 03:05 09:37 WBC 6.3 (4.5-11.0) T/MM3 RBC 3.13 L (4.00-5.20) M/MM3 Hgb 7.5 L 8.4 L D (12-16) GM/DL Hct 24.6 L 28.0 L D (36-46) % Plt Count 491 H (130-400) T/MM3 Neut # (Auto) 3.4 (1.8-7.7) T/MM3 Lymph # (Auto) 2.2 (1-4.8) T/MM3 Mccreary # (Auto) 0.6 (0-0.8) T/MM3 Eos # (Auto) 0.2 (0-0.5) T/MM3 Baso # (Auto) 0.0 (0-0.2) T/MM3 Comprehensive Metabolic Panel 05/17/18 05/18/18 Range/Units 18:14 03:05 Sodium 145 143 (136-146) MEQ/L Potassium 3.9 4.1 (3.6-5) MEQ/L Chloride 107 106 (98-107) MEQ/L Carbon Dioxide 23 24 (22-30) MEQ/L BUN 11.0 14.0 (7-17) MG/DL Creatinine 0.9 1.0 (0.7-1.2) mg/dL Glucose 92 95 (65-110) MG/DL Calcium 9.2 8.7 (8.4-10.2) MG/DL AST 23 (14-36) U/L ALT 10 (1-35) U/L Alkaline Phosphatase 82 (38-126) U/L Total Protein 7.3 (6.3-8.2) g/dL Albumin 4.4 (3.5-5.0) g/dL Intake and Output 05/17/18 05/18/18 05/18/18 22:59 06:59 14:59 Intake Total 236 / 236 240 / 240 240 / 240 Output Total 700 / 700 150 / 150 Balance 236 / 236 -460 / -460 90 / 90 Intake: Oral 236 / 236 240 / 240 240 / 240 Output: Urine 700 / 700 150 / 150 Other: Urine Appearance Clear Clear Urine Color Light Raquel Light Raquel Stool Color Brown Stool Consistency Soft Formed Size of Bowel Movement Moderate Weight 108 lb 0.424 oz 108 lb 0.424 oz Patient Weight 05/19/18 06:59 Weight 108 lb 0.424 oz Assessment and Plan - Assessment and Plan (1) Blood loss anemia Status: Acute Likely GI bleed due to the following: - On Warfarin for anticoagulation due to LV thrombus - On Plavix and Aspirin for dual antiplatelet therapy - Reports black tarry stools for past 3 weeks - History of PUD Replace per attendin Units transfused, 2 Units ready for transfusion if needed. - Holding Warfarin and Aspirin - Continue Plavix Due to patient's cardiac history she is a high risk for surgery/ endoscopy. Must remain on Plavix due to recent BETHANY. Recommend treating empirically for suspected ulcer. (2) Cardiomyopathy Problem details: Dilated Status: Acute CM: dilated. last known EF <20% - Wears LifeVest - Echo scheduled 06/21/18 for evaluation of EF - if not improved following 90 days of medical therapy will consider ICD insertion (3) Left ventricular thrombus Status: Acute - Hold Warfarin and Aspirin due to acute blood loss. - repeat limited echo to evaluate LV thrombus (4) Essential (primary) hypertension Status: Chronic Amlodipine discontinued, Lasix decreased - Continue current therapy with routine monitoring (5) Mixed hyperlipidemia Status: Chronic Takes Atorvastatin, PCP manages - Assessment and Plan Blood loss anemia: Likely GI bleed due to the following: - On Warfarin for anticoagulation due to LV thrombus - On Plavix and Aspirin for dual antiplatelet therapy - Reports black tarry stools for past 3 weeks - History of PUD Replace per attendin Units transfused, 2 Units ready for transfusion if needed. - Holding Warfarin and Aspirin - Continue Plavix Due to patient's cardiac history she is a high risk for surgery/ endoscopy. Must remain on Plavix due to recent BETHANY. Recommend treating empirically for suspected ulcer. CM: dilated. last known EF <20% - Wears LifeVest - Echo scheduled 06/21/18 for evaluation of EF - if not improved following 90 days of medical therapy will consider ICD insertion LV thrombus:- Hold Warfarin and Aspirin due to acute blood loss. - repeat limited echo to evaluate LV thrombus HTN: Amlodipine discontinued, Lasix decreased - Continue current therapy with routine monitoring HLD: Takes Atorvastatin, PCP manages Thank you for allowing us to participate in the care of this patient, we will follow along with you Hospital Course Summary Disclaimer: The visit summary below is not to be considered part of the above Progress Note. Hospital Course: 05/17/17 Admit, OBS Transfuse 2 U PRBC's, Type and hold 2 U. Give Lasix 40mg IV after 1st unit. Consult Dr. Maurice - he will see pt tonight and likely scope her tomorrow. Check P2Y-[address] Ochoa - he will repeat echo tomorrow to make further decisions re : anticoagulation. He rec continuing Plavix for now and hold ASA and Coumadin. Dr Ochoa feels pt should be OK for undergoing scopes w/ Dr. Maurice. Continue home meds except Coumadin and ASA. Pt denies use of Coreg as recommended on DC in 03/[address] Ochoa can discuss with pt further. OK to have cardiac diet now. Pt on fluid restriction for CHF. Further diet orders per Dr. Maurice pending procedures. Pantoprazole 40mg IV BID for empiric tx of PUD/ppx Telemetry/Life Vest. I&O's, daily wts. SCDs for VTE ppx Pt requests DNR code status. DPOA-H Jossy (sister) Care to return to Dr. Edwards on DC. Discussed with Dr. Maurice, Dr. Ochoa, and Dr. Nascimento. <Jonah Ochoa - Last Filed: 05/24/18 14:27> [facility] Patient Stated Medical History Other HEENT Yes: Reading GLASSES Hypertension Yes Myocardial Infarction Yes Bronchitis Yes Pneumonia Yes Gastroesophageal Reflux Yes Disease Anemia Yes Exam Vital signs: Temperature 98.3 F 05/19/18 08:00 Pulse Rate 93 05/19/18 08:00 Respiratory Rate 17 05/19/18 08:00 Blood Pressure 113/68 05/19/18 08:00 Pulse Oximetry 99 05/19/18 08:00 Results 05/19/18 06:17 05/19/18 06:17 Assessment and Plan - Attestation Attestation Narrative: 05/24/18 14:27 Recommendation After examining the patient I agree with the above assessment. I am involved in the formulation of the patient's plan of care. - Assessment and Plan (1) Cardiomyopathy Problem details: Dilated Status: Acute (2) Left ventricular thrombus Status: Acute (3) Blood loss anemia Status: Acute (4) Essential (primary) hypertension Status: Chronic (5) Mixed hyperlipidemia Status: Chronic Hospital Course Summary Disclaimer: The visit summary below is not to be considered part of the above Progress Note.
--- NOTE | 2018-05-18 12:14 | Progress Note ---
- Date 05/18/18 Subjective: F/U: symptomatic anemia, GI bleed. Terrie is seen this morning while resting in bed, watching TV. She reports that she is feeling much better today after receiving 2 units PRBC. Hemoglobin increased from 5.4 on admission to 7.5 this morning. She denies any chest pain , shortness of breath, abdominal pain, nausea, vomiting or dysuria. She denies any blood or dark tarry stools with her recent BM. No dizziness, lightheadedness or syncope with ambulation and standing. She was seen and evaluated by Dr. Maurice. Unfortunately, due to her recent stent 2 months ago and need to remain on Plavix, she will not be able to undergo any endoscopy at this time. Her Coumadin and aspirin remain on hold. Anticipate discharge in near future pending stabilization of hemoglobin. Objective Vital signs: Temperature 96.5 F L 05/18/18 07:57 Pulse Rate 90 05/18/18 07:57 Respiratory Rate 16 05/18/18 07:57 Blood Pressure 107/69 05/18/18 07:57 Pulse Oximetry 97 05/18/18 07:57 Height/Weight/BMI: Height 5 ft 3 in Weight 108 lb 0.424 oz Body Mass Index 19.1 Comments: Sitting in bed, watching TV, eagerly awaiting lunch. - Constitutional Present: no acute distress, well nourished, well developed, cooperative - Routine HEENT Exam Head: Present: normocephalic, atraumatic Eye: Present: PERRL. Absent: conjunctival icterus ENT: Present: mucous membranes moist, oropharynx clear - Routine Respiratory Exam Present: CTA bilaterally. Absent: respiratory distress, wheezes - Routine Cardiovascular Exam Present: S1, S2, tachycardia - Routine Abdominal Exam Present: soft, normoactive bowel sounds, non tender - Routine Extremities Exam Present: no edema, full ROM, pulses intact - Routine Back/Spine/Pelvis Exam Back/Spine: Present: full ROM. Absent: vertebral tenderness Comments: Life vest in place. - Routine Musculoskeletal Exam Musculoskeletal: Present: moving extremities well - Routine Skin Exam Present: intact, dry, warm Comments: Afebrile. - Routine Neurological Exam Present: alert, oriented X3, moving all extremities, hearing grossly intact, normal speech - Routine Lymphatic Exam Lymphatic: Absent: lymphedema - Routine Psychiatric Exam Present: cooperative Results - Labs CBC & Chem 7: 05/18/18 16:04 05/18/18 03:05 Assessment and Plan Assessment and Plan: Assessment Melena -r/o upper GI bleed Symptomatic anemia (Hgb 5.4 on admission) w/ lightheadedness, dyspnea, weakness - likely from acute vs chronic blood loss (hgb 03/08/18=14.0) LV thrombus - Coumadin initiated on dx 03/16 Cardiomyopathy Pulmonary HTN COPD HTN HLD CAD CHF (global hypokinesia -EF<20%) - defibrillator vest H/o gastritis (EGD as teenager, has never had colonoscopy), empirical tx for PUD several yrs ago with resolution of sxs Plan - 05/18/18 Overall, Terrie is feeling much better. Received 2 units PRBC on 05/17 with improvement of hemoglobin to 7.5 (up from 5.4 on admission). Remains asymptomatic with no signs of bleeding. Patient seen and evaluated by Dr. Maurice. Unable to perform endoscopy due to recent cardiac stent 2 months ago and inability to discontinue plavix per Dr. Ochoa. Will continue treatment with Plavix 40mg BID for empiric treatment of PUD. Patient admits to history of ulcers in past. Monitor hemoglobin closely - 5.4-->7.5-->8.4. Check serial HH Q6H. 2 units of PRBC on hold if needed. Patient remains asymptomatic. P2Y-12 low at 27. Continue to hold coumadin and aspirin. Patient must remain on Plavix given recent stent placement per Dr. Ochoa. Cardiac diet. Patient on 1500cc fluid restriction for CHF. Telemetry/Life Vest. I&O's, daily wts. SCDs for VTE ppx Anticipate discharge in near future, hopefully tomorrow if hemoglobin remains stable. Recheck labs in AM. DVT Prophylaxis: SCD's GI Prophylaxis: Protonix Resuscitation Status: Do Not Resuscitate - Time spent with patient Time with patient PN: 25 minutes - Physician Narrative Physician: other (Dr. Nascimento.) Narrative: Date: 05/18/18 Time: 1211 I personally evaluated and examined the patient. Agree with above assessment and plan. Awaiting echo results. Hgb up to 8.4 (5.4). Pt had a BM this am, without any melena. Pt able to ambulate without lightheadedness or fatigue. Lungs clear. RRR. No abd tenderness. Awaiting cardiology official recs as far as stability/risk from a cardiology standpoint for patient to undergo an EGD, and awaiting final decision from surgery regarding whether to proceed with EGD. Also, would like to check Hgb in am to ensure stable. Cont PPI for now for empiric treatment of PUD. Upgrade to inpatient status. Sorin Nascimento MD. Hospital Course Summary Disclaimer: The visit summary below is not to be considered part of the above Progress Note. Hospital Course: 05/17/17 Admit, OBS Transfuse 2 U PRBC's, Type and hold 2 U. Give Lasix 40mg IV after 1st unit. Consult Dr. Muarice - he will see pt tonight and likely scope her tomorrow. Check P2Y-[address] Ochoa - he will repeat echo tomorrow to make further decisions re : anticoagulation. He rec continuing Plavix for now and hold ASA and Coumadin. Dr Ochoa feels pt should be OK for undergoing scopes w/ Dr. Maurice. Continue home meds except Coumadin and ASA. Pt denies use of Coreg as recommended on DC in 03/[address] Ochoa can discuss with pt further. OK to have cardiac diet now. Pt on fluid restriction for CHF. Further diet orders per Dr. Maurice pending procedures. Pantoprazole 40mg IV BID for empiric tx of PUD/ppx Telemetry/Life Vest. I&O's, daily wts. SCDs for VTE ppx Pt requests DNR code status. DPOA-H Jossy (sister) Care to return to Dr. Edwards on DC. Discussed with Dr. Maurice, Dr. Ochoa, and Dr. Nascimento. 05/18/18 Overall, Terrie is feeling much better. Received 2 units PRBC on 05/17 with improvement of hemoglobin to 7.5 (up from 5.4 on admission). Remains asymptomatic with no signs of bleeding. Patient seen and evaluated by Dr. Maurice. Unable to perform endoscopy due to recent cardiac stent 2 months ago and inability to discontinue plavix per Dr. Ochoa. Will continue treatment with Plavix 40mg BID for empiric treatment of PUD. Patient admits to history of ulcers in past. Monitor hemoglobin closely - 5.4-->7.5-->8.4. Check serial HH Q6H. 2 units of PRBC on hold if needed. Patient remains asymptomatic. P2Y-12 low at 27. Continue to hold coumadin and aspirin. Patient must remain on Plavix given recent stent placement per Dr. Ochoa. Cardiac diet. Patient on 1500cc fluid restriction for CHF. Telemetry/Life Vest. I&O's, daily wts. SCDs for VTE ppx Anticipate discharge in near future, hopefully tomorrow if hemoglobin remains stable. Recheck labs in AM.
--- NOTE | 2018-05-18 14:47 | Progress Note ---
DATE: 05/18/2018 FINDINGS Ms. Atkins was seen earlier today on rounds. She was without complaints. She was eating lunch. VITALS: Afebrile. Normotensive. Current vitals include temperature 96.5, pulse 90, respirations 16, blood pressure 107/69, SaO2 97% on room air. HEENT: Normocephalic. Pupils are equal, round and reactive to light and accommodation. CHEST: Clear to auscultation bilaterally. HEART: Regular rate and rhythm. Normal S1 and S2 without gallops, murmurs or clicks. ABDOMEN: Soft, nontender. No evidence for hepatosplenomegaly or other abnormal masses. LABORATORY/RADIOGRAPH EVALUATION The patient's hemoglobin has improved following transfusion to 8.4. She did undergo a platelet P2Y12 function test which did reveal that her Plavix is therapeutic in nature. Her P2Y12 returned at 27. ASSESSMENT 63-year-old female with known significant atherosclerotic coronary artery disease who is found to have marked anemia upon laboratory evaluation. [facility] stated, understandably, that they did not want the patient to come off her Plavix given the fact that her stent was placed just a couple of months ago. I do not feel comfortable proceeding with endoscopic evaluation while the patient is fully anticoagulated on Plavix. I would recommend that we treat the patient empirically as if she has peptic ulcer disease and follow her hemoglobin. Hopefully, her hemoglobin will remain stable once she has been discharged. If the patient's hemoglobin once again drops pretty precipitously, will have to reassess about proceeding with endoscopic evaluation. For now, will treat empirically for peptic ulcer disease and not proceed with endoscopy and follow from a clinical standpoint as stated above. ARBEN
[2018-05-18] MEDS: ATORVASTATIN 40 MG TABLET PO SCH (20:49)
[2018-05-19] MEDS: CLOPIDOGREL 75 MG TABLET PO SCH (08:38)
[2018-05-19] MEDS: FUROSEMIDE 20 MG TABLET PO SCH (08:38)
[2018-05-19] MEDS: PANTOPRAZOLE 40 MG INJECTION IVP SCH (08:38)
[2018-05-19] MEDS: SALINE FLUSH 10ml SYRINGE IV PRN (08:38)
[2018-05-19 09:42] VITALS: BP 113/68; PULSE 93; RESP 17; TEMP 98.3; O2SAT 99
[2018-05-19] MEDS ORDERED: SUCRALFATE 1 GM TABLET PO SCH (11:30)
--- NOTE | 2018-05-19 12:19 | Cardiology Progress Note ---
<Sindhu Black M - Last Filed: 05/22/18 08:32> Subjective Principal diagnosis: Anemia Interval history: Terrie is seen in follow up for anemia, GI bleed, LV thrombus, CAD S/P stent. She is in her bed, in no distress. She denies chest pain, palpitations, dizziness or nausea. Exam Vital signs: Temperature 98.3 F 05/19/18 08:00 Pulse Rate 93 05/19/18 08:00 Respiratory Rate 17 05/19/18 08:00 Blood Pressure 113/68 05/19/18 08:00 Pulse Oximetry 99 05/19/18 08:00 Inpatient Medications: Generic Name Dose Route Start Last Admin Trade Name Freq PRN Reason Stop Dose Admin Acetaminophen 500 mg 05/17/18 17:43 Tylenol PO BID PRN Pain Albuterol/Ipratropium 3 ml 05/17/18 17:43 Duoneb AEROSOL Q4H PRN diff breathing/wheezing Atorvastatin Calcium 40 mg 05/17/18 21:00 05/18/18 20:49 Lipitor PO 40 mg HS ROWAN Administration Clopidogrel Bisulfate 75 mg 05/18/18 09:00 05/19/18 08:38 Plavix PO 75 mg DAILY ROWAN Administration Furosemide 20 mg 05/18/18 09:00 05/19/18 08:38 Lasix 20 Mg Tab PO 20 mg DAILY ROWAN Administration Nicotine 14 mg 05/17/18 17:14 05/18/18 19:17 Nicoderm TD 14 mg DAILY PRN Administration Nicotine 1 removal 05/17/18 17:14 Nicotine Patch Removal TD DAILY PRN Nitroglycerin 0.4 mg 05/17/18 17:43 Nitrostat SL Q5MIN3 PRN Angina Pantoprazole Sodium 40 mg 05/17/18 21:00 05/19/18 08:38 Protonix Iv IVP 40 mg BID ROWAN Administration Sodium Chloride 500 ml 05/17/18 16:15 Normal Saline IV PRN PRN Sodium Chloride 10 - 80 ml 05/17/18 16:15 05/19/18 08:38 Iv Flush IV 10 ml PRN PRN Administration Flushing Sucralfate 1 gm 05/19/18 11:30 Carafate PO ACHS ROWAN Discontinued Medications Generic Name Dose Route Start Last Admin Trade Name Freq PRN Reason Stop Dose Admin Furosemide 40 mg 05/17/18 17:05 05/17/18 23:05 Lasix 40 Mg/4 Ml IVP 05/17/18 17:06 Not Given O ONE - Constitutional no acute distress, well nourished, cooperative - Routine HEENT Exam Head: Present: normocephalic ENT: Present: mucous membranes moist - Routine Neck Exam Absent: JVD, carotid bruit - Routine Chest/Breast/Axilla Exam Chest wall: Absent: tenderness - Routine Respiratory Exam Present: CTA bilaterally. Absent: dyspnea, rales, crackles - Routine Cardiovascular Exam Present: RRR, no murmur - Routine Abdominal Exam Present: soft, non tender - Routine Extremities Exam Present: no edema - Routine Skin Exam Present: intact, dry, warm - Routine Neurological Exam Present: alert, oriented X3 - Routine Psychiatric Exam Present: normal affect, normal thought process Results 05/19/18 06:17 18 06:17 CBC 05/18/18 05/18/18 05/19/18 Range/Units 16:04 22:21 06:17 WBC 7.6 (4.5-11.0) T/MM3 RBC 3.37 L (4.00-5.20) M/MM3 Hgb 8.2 L 7.6 L 7.9 L (12-16) GM/DL Hct 26.8 L 25.3 L 26.4 L (36-46) % Plt Count 541 H (130-400) T/MM3 Neut # (Auto) 4.7 (1.8-7.7) T/MM3 Lymph # (Auto) 2.0 (1-4.8) T/MM3 Garden # (Auto) 0.6 (0-0.8) T/MM3 Eos # (Auto) 0.2 (0-0.5) T/MM3 Baso # (Auto) 0.0 (0-0.2) T/MM3 Comprehensive Metabolic Panel 05/19/18 Range/Units 06:17 Sodium 144 (136-146) MEQ/L Potassium 4.3 (3.6-5) MEQ/L Chloride 108 H (98-107) MEQ/L Carbon Dioxide 24 (22-30) MEQ/L BUN 18.0 H (7-17) MG/DL Creatinine 0.9 (0.7-1.2) mg/dL Glucose 103 (65-110) MG/DL Calcium 9.2 (8.4-10.2) MG/DL Intake and Output 05/18/18 05/19/18 05/19/18 22:59 06:59 14:59 Intake Total 400 / 400 100 / 100 Output Total 500 / 500 Balance 400 / 400 -400 / -400 Intake: Oral 400 / 400 100 / 100 Output: Urine 500 / 500 Other: Urine Appearance Clear Urine Color Yellow Weight 110 lb 3.698 oz Patient Weight 05/20/18 06:59 Weight 110 lb 3.698 oz - Imaging and Cardiology Imaging & Cardiology Narrative: Date of Exam: 05/18/18 Type of Exam(s): US echo limited DATE OF PROCEDURE May 18, 2018 This is a two-dimensional echo with spectral Doppler, color-flow and M-mode. It was obtained in a patient with history of left ventricular thrombus, to follow up on thrombus since patient had recent GI bleed, to adjust medications. Left atrium is dilated. Left ventricle end-diastolic dimension is normal. Left ventricle wall thickness is normal. LV systolic function is reduced with severe global hypokinesia with ejection fraction of about 20%-25%. Small apical thrombus is still present which appears to be much better than what it was in previous echo. Right atrium is normal. Right ventricle is normal. Aortic root dimension is normal. Mitral, aortic, and tricuspid valves are morphologically normal. There is no pericardial effusion. IMPRESSION 1. Severe global hypokinesia with ejection fraction of about 20%-25%. 2. Left atrial dilation. 3. Small apical thrombus but improved compared to previous echo. 05/22/18 08:35 Assessment and Plan - Assessment and Plan (1) Blood loss anemia Status: Acute (2) Cardiomyopathy Problem details: Dilated Status: Acute (3) Left ventricular thrombus Status: Acute (4) Essential (primary) hypertension Status: Chronic (5) Mixed hyperlipidemia Status: Chronic - Assessment and Plan 05/18/18 Blood loss anemia Current visit: Yes Status: Acute Likely GI bleed due to the following: - On Warfarin for anticoagulation due to LV thrombus - On Plavix and Aspirin for dual antiplatelet therapy - Reports black tarry stools for past 3 weeks - History of PUD Replace per attendin Units transfused, 2 Units ready for transfusion if needed. - Holding Warfarin and Aspirin - Continue Plavix Due to patient's cardiac history she is a high risk for surgery/ endoscopy. Must remain on Plavix due to recent BETHANY. Recommend treating empirically for suspected ulcer. Cardiomyopathy Problem details: Dilated Current visit: No Status: Acute CM: dilated. last known EF <20% - Wears LifeVest - Echo scheduled 06/21/18 for evaluation of EF - if not improved following 90 days of medical therapy will consider ICD insertion Left ventricular thrombus Current visit: No Status: Acute - Hold Warfarin and Aspirin due to acute blood loss. - repeat limited echo to evaluate LV thrombus Essential (primary) hypertension Current visit: Yes Status: Chronic Amlodipine discontinued, Lasix decreased - Continue current therapy with routine monitoring Mixed hyperlipidemia Current visit: Yes Status: Chronic Takes Atorvastatin, PCP manages 05/19/18 2D echo shows: Severe global hypokinesia with ejection fraction of about 20%-25% . - Small apical thrombus but improved compared to previous echo. - Resume Coumadin with Lovenox bridge - Closely monitor INR and H&H Hospital Course Summary Disclaimer: The visit summary below is not to be considered part of the above Progress Note. Hospital Course: 05/17/17 Admit, OBS Transfuse 2 U PRBC's, Type and hold 2 U. Give Lasix 40mg IV after 1st unit. Consult Dr. Maurice - he will see pt tonight and likely scope her tomorrow. Check P2Y-[address] Ochoa - he will repeat echo tomorrow to make further decisions re : anticoagulation. He rec continuing Plavix for now and hold ASA and Coumadin. Dr Ochoa feels pt should be OK for undergoing scopes w/ Dr. Maurice. Continue home meds except Coumadin and ASA. Pt denies use of Coreg as recommended on DC in 03/[address] Ochoa can discuss with pt further. OK to have cardiac diet now. Pt on fluid restriction for CHF. Further diet orders per Dr. Maurice pending procedures. Pantoprazole 40mg IV BID for empiric tx of PUD/ppx Telemetry/Life Vest. I&O's, daily wts. SCDs for VTE ppx Pt requests DNR code status. DPOA-H Jossy (sister) Care to return to Dr. Edwards on DC. Discussed with Dr. Maurice, Dr. Ochoa, and Dr. Nascimento. <Jonah Ochoa - Last Filed: 05/26/18 18:04> Exam Vital signs: Temperature 98.3 F 05/19/18 08:00 Pulse Rate 93 05/19/18 08:00 Respiratory Rate 17 05/19/18 08:00 Blood Pressure 113/68 05/19/18 08:00 Pulse Oximetry 99 05/19/18 08:00 Inpatient Medications: Discontinued Medications Generic Name Dose Route Start Last Admin Trade Name Freq PRN Reason Stop Dose Admin Acetaminophen 500 mg 05/17/18 17:43 Tylenol PO BID PRN Pain Albuterol/Ipratropium 3 ml 05/17/18 17:43 Duoneb AEROSOL Q4H PRN diff breathing/wheezing Atorvastatin Calcium 40 mg 05/17/18 21:00 05/18/18 20:49 Lipitor PO 40 mg HS ROWAN Administration Clopidogrel Bisulfate 75 mg 05/18/18 09:00 05/19/18 08:38 Plavix PO 75 mg DAILY ROWAN Administration Enoxaparin Sodium 75 mg 05/19/18 14:45 05/19/18 15:16 Lovenox SQ 05/19/18 14:46 75 mg O ONE Administration Furosemide 40 mg 05/17/18 17:05 05/17/18 23:05 Lasix 40 Mg/4 Ml IVP 05/17/18 17:06 Not Given O ONE Furosemide 20 mg 05/18/18 09:00 05/19/18 08:38 Lasix 20 Mg Tab PO 20 mg DAILY ROWAN Administration Nicotine 14 mg 05/17/18 17:14 05/18/18 19:17 Nicoderm TD 14 mg DAILY PRN Administration Nicotine 1 removal 05/17/18 17:14 Nicotine Patch Removal TD DAILY PRN Nitroglycerin 0.4 mg 05/17/18 17:43 Nitrostat SL Q5MIN3 PRN Angina Pantoprazole Sodium 40 mg 05/17/18 21:00 05/19/18 08:38 Protonix Iv IVP 40 mg BID ROWAN Administration Sodium Chloride 500 ml 05/17/18 16:15 Normal Saline IV PRN PRN Sodium Chloride 10 - 80 ml 05/17/18 16:15 05/19/18 08:38 Iv Flush IV 10 ml PRN PRN Administration Flushing Sucralfate 1 gm 05/19/18 11:30 05/19/18 12:14 Carafate PO 1 gm ACHS ROWAN Administration Warfarin Sodium 1.5 mg 05/19/18 14:34 05/19/18 14:59 Coumadin PO 05/19/18 14:35 1.5 mg O ONE Administration Results 05/19/18 06:17 05/19/18 06:17 Assessment and Plan - Assessment and Plan (1) Cardiomyopathy Problem details: Dilated Status: Acute (2) Left ventricular thrombus Status: Acute (3) Blood loss anemia Status: Acute (4) Essential (primary) hypertension Status: Chronic (5) Mixed hyperlipidemia Status: Chronic - Attestation Attestation Narrative: 05/26/18 18:04 Recommendation After examining the patient I agree with the above assessment. I am involved in the formulation of the patient's plan of care. Hospital Course Summary Disclaimer: The visit summary below is not to be considered part of the above Progress Note.
--- NOTE | 2018-05-19 13:14 | Discharge Summary ---
Discharge Information Date of admission: 05/17/18 14:58 Anticipated date of discharge: 05/19/18 Attending Physician: Eric Nascimento MD Primary care physician: Omari Edwards MD Consults: 05/17/18 16:14 Physician Consult [CONS] Routine Consulting Provider: Mateus Maurice Reason For Exam: melena, hgb 4.8 05/17/18 17:14 Physician Consult [CONS] Consulting Provider: Jonah Ochoa Reason For Exam: LV thrombus/GI bld on anticoagulation Melena, concerning for upper GI bleed. Symptomatic anemia (Hgb 5.4 on admission) with lightheadedness, dyspnea, weakness - likely from acute vs chronic blood loss (hgb 03/08/18=14.0) LV thrombus - Coumadin initiated on diagnosis on 03/16/[address] Ochoa. Cardiomyopathy Pulmonary Hypertension COPD Hypertension Hyperlipidemia CAD CHF (global hypokinesia -EF<20%) - defibrillator vest History of gastritis (EGD as teenager, has never had colonoscopy), empirical treatment for PUD several years ago with resolution of symptoms. S/P cardiac stent placement in February 2018 requiring uninterrupted treatment with Plavix. - Laboratory Labs: Laboratory Tests 05/17/18 05/17/18 05/17/18 16:16 16:47 18:14 WBC RBC Hgb Hct MCV MCH MCHC RDW Std Deviation Plt Count MPV Immature Gran % (Auto) Neut % (Auto) Lymph % (Auto) [place] % (Auto) Eos % (Auto) Baso % (Auto) Neut # (Auto) Lymph # (Auto) [place] # (Auto) Eos # (Auto) Baso # (Auto) Abs Immat Gran (auto) Plt Funct P2Y12 Units 27 Turbidity Sodium Potassium Chloride Carbon Dioxide Anion Gap BUN Creatinine GFR Calculation BUN/Creatinine Ratio Glucose Calculated Osmolality Calcium Magnesium Total Bilirubin Icterus Index AST ALT Alkaline Phosphatase Total Protein Albumin Globulin Albumin/Globulin Ratio Specimen Hemolysis Blood Type A Positive Antibody Screen Negative Crossmatch ([facility]G) See Detail Blood Product Request 1 unit pc issued 05/17/18 05/17/18 05/18/18 18:14 23:57 03:05 WBC RBC Hgb Hct MCV MCH MCHC RDW Std Deviation Plt Count MPV Immature Gran % (Auto) Neut % (Auto) Lymph % (Auto) [place] % (Auto) Eos % (Auto) Baso % (Auto) Neut # (Auto) Lymph # (Auto) [place] # (Auto) Eos # (Auto) Baso # (Auto) Abs Immat Gran (auto) Plt Funct P2Y12 Units Turbidity < 20 < 20 Sodium 145 143 Potassium 3.9 4.1 Chloride 107 106 Carbon Dioxide 23 24 Anion Gap 15 13 BUN 11.0 14.0 Creatinine 0.9 1.0 GFR Calculation 64 56 BUN/Creatinine Ratio 12 14 Glucose 92 95 Calculated Osmolality 278 276 Calcium 9.2 8.7 Magnesium 2.2 Total Bilirubin 0.40 Icterus Index < 2 < 2 AST 23 ALT 10 Alkaline Phosphatase 82 Total Protein 7.3 Albumin 4.4 Globulin 2.9 Albumin/Globulin Ratio 1.5 Specimen Hemolysis < 15 < 15 Blood Type Antibody Screen Crossmatch ([facility]) Blood Product Request 1 unit pc issued 05/18/18 05/18/18 05/18/18 03:05 09:37 16:04 WBC 6.3 RBC 3.13 L Hgb 7.5 L 8.4 L D 8.2 L Hct 24.6 L 28.0 L D 26.8 L MCV 78.6 L MCH 24.0 L MCHC 30.5 L RDW Std Deviation 66.1 H Plt Count 491 H MPV 9.0 L Immature Gran % (Auto) 0.2 Neut % (Auto) 53.1 Lymph % (Auto) 34.5 [place] % (Auto) 9.4 H Eos % (Auto) 2.5 Baso % (Auto) 0.3 Neut # (Auto) 3.4 Lymph # (Auto) 2.2 [place] # (Auto) 0.6 Eos # (Auto) 0.2 Baso # (Auto) 0.0 Abs Immat Gran (auto) 0.01 Plt Funct P2Y12 Units Turbidity Sodium Potassium Chloride Carbon Dioxide Anion Gap BUN Creatinine GFR Calculation BUN/Creatinine Ratio Glucose Calculated Osmolality Calcium Magnesium Total Bilirubin Icterus Index AST ALT Alkaline Phosphatase Total Protein Albumin Globulin Albumin/Globulin Ratio Specimen Hemolysis Blood Type Antibody Screen Crossmatch ([facility]) Blood Product Request 05/18/18 05/19/18 05/19/18 22:21 06:17 06:17 WBC 7.6 RBC 3.37 L Hgb 7.6 L 7.9 L Hct 25.3 L 26.4 L MCV 78.3 L MCH 23.4 L MCHC 29.9 L RDW Std Deviation 67.5 H Plt Count 541 H MPV 9.1 L Immature Gran % (Auto) 0.1 Neut % (Auto) 62.7 Lymph % (Auto) 26.4 [place] % (Auto) 7.9 Eos % (Auto) 2.6 Baso % (Auto) 0.3 Neut # (Auto) 4.7 Lymph # (Auto) 2.0 [place] # (Auto) 0.6 Eos # (Auto) 0.2 Baso # (Auto) 0.0 Abs Immat Gran (auto) 0.01 Plt Funct P2Y12 Units Turbidity < 20 Sodium 144 Potassium 4.3 Chloride 108 H Carbon Dioxide 24 Anion Gap 12 BUN 18.0 H Creatinine 0.9 GFR Calculation 64 BUN/Creatinine Ratio 20 Glucose 103 Calculated Osmolality 279 Calcium 9.2 Magnesium Total Bilirubin Icterus Index < 2 AST ALT Alkaline Phosphatase Total Protein Albumin Globulin Albumin/Globulin Ratio Specimen Hemolysis < 15 Blood Type Antibody Screen Crossmatch ([facility]G) Blood Product Request - Radiology Radiology: Echocardiogram 05/18/18 - preliminary report concerning for residual left ventricular clot. Final report pending at time of discharge. History of Present Illness HPI: Patient is a 63 yo female who sees Dr. Edwards for primary care and Dr. Ochoa for cardiomyopathy/CHF. Pt c/o dizziness/lightheadedness, SOA, "legs buckling, " and severe fatigue for at least the past 3 weeks. She has had black stools over the past 3 wks but denies any black stools over the past week. She had labs drawn yesterday in her doctor's office and had an appt with Dr. Ochoa here in [place] this morning. She was notified of her lab results (hgb 4.8) after she was back home in [place] following her appt with Dr. Ochoa. She was then sent to [facility] ER in [place] where repeat hgb was 5.4. (Hgb checked 03/08/18 was 14.0). She was directly admitted to [facility] for blood transfusion and further w-u of presumed GI bleeding. Patient was started on warfarin in February 2018 following an NSTEMI and finding of a LV thrombus. INR today is 1.53 (INR 3.11 on 05/04/18). She is chronically on Plavix and ASA 81mg. She was recently hospitalized on 03/10/[address] Ochoa for acute systolic heart failure, NSTEMI, dilated cardiomyopathy, L ventricular thrombus and pulmonary HTN. She had a L heart cath with a stent placement in the mid RCA (EluNIR drug eluting stent). Echo performed 03/08/18 showed severe global hypokinesia with EF of <20%, L ventricular apical thrombus, biatrial dilation, moderate tricuspid regurgitation with severe pulmonary HTN with pulmonary artery systolic pressure of 75. She is currently wearing a defibrillator vest. Objective Vital signs: Temperature 98.3 F 05/19/18 08:00 Pulse Rate 93 05/19/18 08:00 Respiratory Rate 17 05/19/18 08:00 Blood Pressure 113/68 05/19/18 08:00 Pulse Oximetry 99 05/19/18 08:00 Height/Weight/BMI: Height 5 ft 3 in Weight 110 lb 3.698 oz Body Mass Index 19.1 Comments: Patient is seen while sitting up in bed, watching TV and is eager for discharge home. - Constitutional Present: no acute distress, well nourished, well developed, thin, cooperative - Routine HEENT Exam Head: Present: normocephalic, atraumatic Eye: Present: PERRL. Absent: conjunctival icterus ENT: Present: mucous membranes moist, oropharynx clear - Routine Respiratory Exam Present: CTA bilaterally. Absent: respiratory distress, wheezes - Routine Cardiovascular Exam Present: S1, S2 - Routine Abdominal Exam Present: soft, normoactive bowel sounds, non tender Comments: Thin - Routine Extremities Exam Present: no edema, full ROM, pulses intact - Routine Back/Spine/Pelvis Exam Back/Spine: Present: full ROM. Absent: vertebral tenderness Comments: Life vest in place. - Routine Musculoskeletal Exam Musculoskeletal: Present: no clubbing or cyanosis, moving extremities well - Routine Skin Exam Present: intact, dry, warm Comments: afebrile - Routine Neurological Exam Present: alert, oriented X3, CN II-XII intact, moving all extremities, hearing grossly intact, normal speech - Routine Lymphatic Exam Lymphatic: Absent: lymphedema - Routine Psychiatric Exam Present: normal affect, cooperative Hospital Course This is a general summary of the patient's hospital course. For more details refer to the complete medical record. Hospital course: 05/17/18 Patient admitted to observation status for further evaluation of symptomatic anemia with suspected GI bleed. Transfused 2 units PRBC with 2 additional units on hold. Lasix 40mg IV given after 1 unit transfused. Serial hemoglobins monitored closely with improvement of hemoglobin from 5.4 on admission to 7.5 after [address] Maurice consulted for surgical evaluation and likely to scope patient on pending cardiology clearance. Will obtain P2Y-[address] Maurice given patient's use of Plavix. Dr. Ochoa consulted and plans to repeat echo on 05/18/18 to make further decisions re: anticoagulation. He recommended continuing Plavix for now and holding ASA and Coumadin. Dr Ochoa feels patient should be OK to undergo endoscopy evaluation. Prior to admission, patient was on warfarin for anticoagulation due to LV thrombus and Plavix and ASA for dual antiplatelet therapy secondary to cardiac stent placed in February 2018. Continue home meds except Coumadin and ASA. Patient denies use of Coreg despite being recommended by Dr. Ochoa on discharge from hospital in 02/2018. Continue to wear life vest. OK to have cardiac diet now. Pt on fluid restriction for CHF. Pantoprazole 40mg IV BID for empiric treatment of PUD and GI prophylaxis. Telemetry/Life Vest. I&O's, monitor daily weights closely for signs of fluid overload. SCDs for VTE ppx 05/18/18 Overall, Terrie is feeling much better. Received 2 units PRBC on 05/17 with improvement of hemoglobin to 7.5 (up from 5.4 on admission). Remains asymptomatic with no signs of bleeding. Patient seen and evaluated by Dr. Maurice. Unable to perform endoscopy due to recent cardiac stent 2 months ago and inability to discontinue Plavix per Dr. Ochoa. Will continue to treat patient empirically as if she has peptic ulcer disease and monitor hemoglobin closely per Dr. Maurice. Will continue treatment with Plavix 40mg BID for empiric treatment of PUD. Patient admits to history of ulcers in past. Monitor hemoglobin closely - 5.4-->7.5-->8.4. Check serial HH Q6H. 2 units of PRBC on hold if needed. Patient remains asymptomatic. P2Y-12 low at 27. Continue to hold Coumadin and aspirin. Patient must remain on Plavix given recent stent placement per Dr. Ochoa. Cardiac diet. Patient on 1500cc fluid restriction for CHF. Telemetry/Life Vest. I&O's, daily wts. Anticipate discharge in near future, hopefully tomorrow if hemoglobin remains stable. Upgrade to inpatient status. If the patient's hemoglobin once again drops pretty precipitously, will have to reassess about proceeding with endoscopic evaluation. 05/19/18 Patient is eager for discharge home. Denies any complaints. Hemoglobin relatively stable following 2 units PRBC on 05/17/18: 5.4 (POA)-->7.5- ->8.4-->8.2-->7.6-->7.9. Patient remains asymptomatic without signs of bleeding, melena or blood in stools. Preliminary echocardiogram report revealed concern for residual thrombus in LV. Final report pending. Dr. Ochoa recommended restarting Coumadin and aspirin and bridging therapy with Lovenox until INR is therapeutic at 2.0-3.0. Patient instructed on Lovenox injections and reason for treatment. Patient to follow up with Dr. Ochoa next week as well as Dr. Mckeon. Will recheck INR and labs on 05/21 and again on 05/23 with plans to discontinue Lovenox once INR is therapeutic. Patient instructed to continue other home medications as directed and maintain 1500cc fluid restriction. Plan to discharge home today. Time spent with patient: greater than 35 minutes Resuscitation Status: Do Not Resuscitate Discharge Plan - Discharge Disposition Discharge Date: 05/19/18 Disposition: Discharged Home, Self-Care *Condition: Stable Reason For Visit (Visit label in EMR): Anemia, GI bleed - Discharge Medications Medication Comments: Medication changes during hospitalization: Warfarin: placed on HOLD on 05/17/18 due to GI bleed. RESTARTED immediately prior to discharge at home dose of 1.5mg daily. ASA: placed on HOLD on 05/17/18 due to GI bleed. RESTARTED immediately prior to discharge at home dose of 81 mg daily. Nicotine Patch: initiated during hospitalization for smoking cessation and discontinued on discharge. Protonix: 40mg IV BID initiated on 05/17/18 for GI protection and empiric treatment of PUD. To be continued BID orally x 1 month and recommended daily after a month. Carafate: 1g orally before meals and at bedtime for GI protection and empiric treatment of PUD. To be continued at least x 1 month. *Discharge Medications: New Pantoprazole Sodium [Protonix] 1 tab PO ACBID #60 tab Sucralfate [Carafate] 1 gm PO ACHS #120 tab Enoxaparin [Lovenox] 75 mg SQ DAILY #6 syringe Carvedilol [Coreg] 1 tab PO BIDWM #60 tab Lisinopril [Prinivil] 2.5 mg PO DAILY #30 tab Continue Albuterol/Ipratropium [Duoneb] 1 unit AEROSOL Q4H PRN PRN Reason: diff breathing/wheezing Aspirin *EC* [Ecotrin] 81 mg PO DAILY #30 tab Atorvastatin [Lipitor] 40 mg PO HS #30 tab Clopidogrel [Plavix] 75 mg PO DAILY #30 tab # Warfarin Protocol # [Coumadin Protocol] 1.5 mg PO DAILY Acetaminophen [Acetaminophen Extra Strength] 500 mg PO BID Nitroglycerin [Nitrostat] 0.4 mg SL Q5MIN3 PRN #25 tab PRN Reason: Angina Furosemide [Lasix] 20 mg PO DAILY - Discharge Packet/Instructions *Diet: Cardiac diet with 1500cc daily fluid restriction and 2g salt restriction with low fat. *Activity: As tolerated. *Pain Management/Treatment: Tylenol 500mg twice daily as needed. *Wound Care: None. Additional Instructions: You have been started on Protonix 40mg twice daily as well as Carafate 1gm with meals and at bedtime for treatment of suspected ulcer/ GI bleeding. Take as directed for at least 1 month. Recommend continuation of Protonix daily after month for GI protection. Restart your home dose of warfarin 1.5mg daily and aspirin 81mg daily as directed by Dr. Ochoa for anticoagulation. It will take a few days for your INR to be within range of 2.0 -3.0 after restarting warfarin therapy. Daily Lovenox 75mg SQ until INR is 2.0- 3.0. Have your INR and CBC rechecked at [facility] on 05/21 and rechecked again in [place] on 05/23 to monitor blood counts and anticoagulation therapy. Follow up with Dr. Edwards next week and with Dr. Ochoa as directed. *Expected Signs/Symptoms: gradual improvement. *Notify Physician if: fever >100.8, chest pain, shortness of breath, increased fatigue, dizziness especially with standing, passing out, blood in stools, dark tarry stools, additional questions or concerns. *During Business Hours Contact: Dr. Edwards at [phone] Ochoa at [phone]. *After Business Hours Contact: the on-call physician for either Dr. Edwards at [phone] Ochoa at [phone] or the neared emergency department. *Pending Lab/Results: No Pending Lab - Referrals/Follow Up *Referrals/Follow Up: Jonah Ochoa MD [Physician] - (Follow up as directed in 1-2 weeks. Call to schedule. CALL AND MAKE APPOINTMENT TO BE SEEN IN 1-2 WEEKS, OFFICE NUMBER [phone]) Omari Edwards MD [Primary Care Provider] - 1 Week (Follow up with Dr. Edwards early next week - call today to schedule appointment hopefully for Wednesday or Wednesday 05/23 or 05/24. OFFICE CLOSED ON WEDNESDAY & WEDNESDAY, CALL WEDNESDAY AM TO SCHEDULE APPOINTMENT ON OR 05/24 FOR HOSPITAL FOLLOW UP.) - Patient Handouts Patient Handouts: Gastrointestinal Bleeding (GEN), Anemia (GEN) - Dismissal Complete Discharge Instructions are:: Complete Physician Narrative - Narrative Attestation Narrative: Date: 05/19/18 Time: [id number] I personally assessed and examined patient. Agree with above summary and plan. Pt feeling well. No recurrence of melena. Hgb stable. Lungs clear. RRR. Abd soft, NT. UGIB: tx with protonix 40mg BID x 1 month. LV clot: Bridge to therapeutic INR with lovenox, and restart home coumdadin dose. CAD with BETHANY: Cont plavix. Follow up with PCP for lab and eval. Sorin Nascimento MD.
[2018-05-19] MEDS ORDERED: WARFARIN 1 MG TABLET PO ONE (14:34)
[2018-05-19] MEDS ORDERED: ENOXAPARIN 150 MG/ML INJECTION SQ ONE (14:34)
[2018-05-19] MEDS ORDERED: ENOXAPARIN 80 MG/0.8 ML INJECTION SQ ONE (14:45)
--- NOTE | 2018-05-19 23:27 | Echocardiogram ---
DATE OF PROCEDURE May 18, 2018 This is a two-dimensional echo with spectral Doppler, color-flow and M-mode. It was obtained in a patient with history of left ventricular thrombus, to follow up on thrombus since patient had recent GI bleed, to adjust medications. Left atrium is dilated. Left ventricle end-diastolic dimension is normal. Left ventricle wall thickness is normal. LV systolic function is reduced with severe global hypokinesia with ejection fraction of about 20%-25%. Small apical thrombus is still present which appears to be much better than what it was in previous echo. Right atrium is normal. Right ventricle is normal. Aortic root dimension is normal. Mitral, aortic, and tricuspid valves are morphologically normal. There is no pericardial effusion. IMPRESSION 1. Severe global hypokinesia with ejection fraction of about 20%-25%. 2. Left atrial dilation. 3. Small apical thrombus but improved compared to previous echo. MTDD
== END 2018-05-19 15:20 | disposition home or self-care (01) ==
LOC: MED
PROVIDERS: ADMIT Family Medicine; ATTEND Family Medicine